=== PATIENT | female | born 1975 | race Caucasian/White ===

== ENCOUNTER 2022-04-05 15:30 | Outpatient (CLI) | payer OTHER, SELFPAY ==
--- NOTE | 2022-04-05 16:00 | MM_ITS ---
WS: [id number] BILATERAL 3D TOMOSYNTHESIS DIGITAL SCREENING MAMMOGRAPHY WITH CAD CLINICAL INFORMATION: SCREEN HISTORY: Screening mammogram. No current complaints. COMPARISON: 2013 TECHNIQUE: Bilateral CC and MLO views. FINDINGS: Scattered fibroglandular densities bilaterally. No suspicious focal mass, asymmetry, calcifications, or architectural distortion. No evidence of malignancy. MM/[place] [id number] IMPRESSION: BI-RADS: 1-Negative FOLLOW UP: 1 Year Follow-up Recommend return to annual screening mammography.
== END 2022-04-05 15:31 | disposition home or self-care (01) ==
LOC: RAD 15:30
PROVIDERS: PCP Nurse Practitioner Family; Visit Provider Nurse Practitioner Family
DX: Z12.31 Encounter for screening mammogram for malignant neoplasm of breast (principal)
CPT/HCPCS: 77063; 77067

== ENCOUNTER → 2022-04-13 11:00 | Outpatient (BNVA) | payer OTHER, SELFPAY | PROVIDERS: PCP Nurse Practitioner Family; Visit Provider Nurse Practitioner Women's Health | DX: N93.9 Abnormal uterine and vaginal bleeding, unspecified (principal); Z11.3 Encounter for screening for infections with a predominantly sexual mode of transmission; Z12.4 Encounter for screening for malignant neoplasm of cervix | CPT/HCPCS: 87491; 87591; 87624; 87661 ==

== ENCOUNTER 2022-04-17 16:18 | Outpatient (CLI) | payer OTHER, SELFPAY ==
[2022-04-17 22:59] LABS: HIV 1 & 2 Antibody Non-Reactive (Non-Reactiv); HIV 1 & 2 Antigen Non-Reactive (Non-Reactiv)
[2022-04-17 23:51] LABS: Thyroid Stimulating Hormone 1.58 uIU/mL (0.27-4.20)
[2022-04-17 23:54] LABS: Rapid Plasma Reagin Syphilis Nonreactive (Nonreactive)
[2022-04-17 23:58] LABS: Hepatitis B Surface Antigen Non-Reactive (Nonreactive); Hepatitis C Virus Antibody Non-Reactive (Nonreactive)
== END 2022-04-17 16:19 | disposition home or self-care (01) ==
LOC: LAB 16:22
PROVIDERS: PCP Nurse Practitioner Family; Visit Provider Nurse Practitioner Women's Health
DX: N93.9 Abnormal uterine and vaginal bleeding, unspecified (principal); Z11.3 Encounter for screening for infections with a predominantly sexual mode of transmission
CPT/HCPCS: 36415; 84443; 84702; 86592; 86803; 87340; 87806

== ENCOUNTER → 2022-04-27 15:26 | Outpatient (BNVA) | payer OTHER, SELFPAY | PROVIDERS: PCP Nurse Practitioner Family; Visit Provider Nurse Practitioner Women's Health | DX: N93.9 Abnormal uterine and vaginal bleeding, unspecified (principal) | CPT/HCPCS: 76830 ==

== ENCOUNTER → 2022-05-08 13:15 | Outpatient (BNVA) | payer OTHER, SELFPAY | PROVIDERS: PCP Nurse Practitioner Family; Visit Provider Nurse Practitioner Women's Health | DX: N93.9 Abnormal uterine and vaginal bleeding, unspecified (principal) | CPT/HCPCS: 81025; 85025; 88305 ==

== ENCOUNTER 2022-07-26 13:20 | Observation (INO) | payer OTHER, SELFPAY ==
[2022-07-25 08:19] VITALS: BMI 23.1
--- NOTE | 2022-07-25 08:31 | ANES.PREANE2 ---
Pre-Anesthetic Assessment Height/Weight: Height 1.63 m Weight 61.235 kg Operation Date: 07/26/22 11:50 Proposed Procedures p Laparoscopic assisted vaginal hysterectomy, bilateral salpingo-oophorectomy 88116,N93.9(Not Applicable) - Thom Thao MD Familial anesthetic complications: None Social Tobacco and No alcohol Exam alert, oriented x 3, clear to auscultation bilaterally and regular rate & rhythm Airway Mallampati: Class II Dentition: full Pulmonary None reported CV/HEM None reported None reported Hepatic None reported GI None reported Metabolic None reported Musc/skel None reported Neuropsych None reported Anesthetic Plan ASA status: 1 Anesthesia: General Risk of > 500 ml blood loss (7ml/kg in children): No Medications/Allergies Home Medications Medication Instructions Recorded Confirmed Last Taken Type hair skin and nails 3,000 mcg PO 1XD 06/30/20 07/25/22 07/25/22 History multivitamin (Daily Multi-Vitamin 1 tab PO DAILY 06/30/20 07/25/22 07/25/22 History tablet) calcium carb 300 mg-D3 800 1 tab PO DAILY 05/08/22 07/25/22 07/25/22 History unit-mag ox 25 mg-messenger copy 0.5 mg-neel-Zn tablet (Caltrate + D3 Plus Minerals) PFSH Anesthesia Medical History No pertinent past medical history neghx: htn,dm,thyroid,dvt/pe PCP: Anny Lino Seasonal allergies Tobacco use Surgical History H/O shoulder surgery Hx of section 1999 2004-- twins gestation Hx of colonoscopy (~2002) Family History Father Heart disease Denies family history of Colon cancer Ovarian cancer Diabetes Hypercholesteremia Breast cancer Hypertension Uterine cancer Thyroid disease Stroke Social History Smoking and tobacco status: current every day smoker (5- cigarettes) Female Reproductive History Date of last menstrual period: 07/18/22 Data Anesthesia Cardiac Studies: No Data to Display
[2022-07-26] VITALS (19 sets, daily range): BP systolic 84–124; BP diastolic 47–77; PULSE 45–76; RESP 16–23; TEMP 36.3–36.9; O2SAT 94–100
--- NOTE | 2022-07-26 10:18 | W.PM.OPSUD ---
Surgery/Procedure H&P Update DATE OF PROCEDURE: July 26, 2022 DATE H&P PERFORMED: 07/25/22 H&P UPDATE INFORMATION: I have reviewed H&P completed within last 30 days, I have examined patient prior to procedure and No changes to prior documentation PLANNED PROCEDURE: Operation Date: 07/26/22 11:50 Proposed Procedures p Laparoscopic assisted vaginal hysterectomy, bilateral salpingo-oophorectomy 16714,N93.9(Not Applicable) - Thom Thao MD
[2022-07-26 11:04] LABS: OR HCG Qualitative Urine Negative (Negative)
[2022-07-26 11:05] LABS: Add Urine Microscopic? YES; Bilirubin Urine Neg (Negative); Blood Urine Neg (Negative); Glucose Urine UA Norm (Normal); Ketones Urine Negative (Negative); Leukocyte Esterase Urine Negative (Negative); Nitrate Urine Negative (Negative); Protein Urine Neg (Negative); Urine Appearance Hazy (CLEAR); Urine Color Yellow (Yellow); Urobilinogen Urine 1 mg/dL (Negative); pH Urine 6 (5-7)
[2022-07-26] MEDS: sodium chloride 0.9% 1,000 ML 30 ML IV (11:12)
[2022-07-26 11:19] LABS: Basophils # 0.1 10^3/uL (0.0-0.1); Basophils % 1.1 %; Eosinophils # 0.3 10^3/uL (0.0-0.8); Eosinophils % 2.9 %; Hematocrit 45.4 % (37.0-47.0); Hemoglobin 15.1 g/dL (11.5-15.3); Lymphocytes # 2.7 10^3/uL (0.8-4.8); Lymphocytes % 31.7 %; Mean Corpuscular HGB Conc 33.3 g/dL (30.0-36.0); Mean Corpuscular Hemoglobin 29.3 pg (28.0-34.0); Mean Platelet Volume 11.3 fL (7.4-10.4); Monocytes # 0.6 10^3/uL (0.2-0.9); Monocytes % 6.8 %; Neutrophils # 4.91 10^3/uL (1.8-7.7); Neutrophils % 57.3 %; Nucleated Red Blood Cells % 0 %; Platelet Count 257 10^3/cmm (130-400); Red Blood Count 5.16 10^6/uL (4.1-5.3); Red Cell Distribution Width 12.5 % (12.1-15.1); White Blood Count 8.6 10^3/uL (4.0-10.0)
[2022-07-26] MEDS: midazolam 1 mg/mL INJ 2 mL 2 MG IVP (11:25)
[2022-07-26] MEDS: ceFOXitin 2,000 MG in sodium chloride 0.9% (plus) 50 ML 100 MG IV (11:33)
[2022-07-26 11:36] LABS: Alanine Aminotransferase 25 U/L (0-33); Albumin Level 4.7 g/dL (3.5-5.2); Alkaline Phosphatase 56 U/L (35-105); Aspartate Amino Transferase 27 U/L (0-32); Blood Urea Nitrogen 14 mg/dL (6-20); Calcium 9.1 mg/dL (8.5-10.5); Carbon Dioxide 27 mmol/L (22-29); Chloride 104 mmol/L (98-107); Globulin 2.5 g/dL (1.3-4.6); Glomerular Filtration Rate 106.7 mL/min (90-130); Glucose 89 mg/dL (65-115); Osmolality Calculated 292 mOsm/kg (285-295); Sodium 141 mmol/L (136-145); Total Bilirubin 0.4 mg/dL (0.15-1.2); Total Protein 7.2 g/dL (6.6-8.7)
[2022-07-26 11:47] LABS: RBC Urine 0-4 /hpf (0-2)
[2022-07-26 11:48] LABS: Add Urine Culture? No; Amorphous Sediment Urine 2+ /hpf; Bacteria Urine TRACE /hpf; Mucus Urine TRACE /hpf; Squamous Epithelial Cell Urine 0-4 /hpf (0-5)
[2022-07-26] MEDS: lidocaine-epi 2% 20 mL INJ 10 ML INJECTION (12:30)
--- NOTE | 2022-07-26 13:18 | PM.OP ---
Operative Report Date of procedure: July 26, 2022 Pre-op diagnosis: Preop Diagnosis Abnormal uterine bleeding Post-op diagnosis: Same as above Post-op findings: Normal-sized uterus Normal-sized ovaries and fallopian tubes. Mild endometriosis Procedure done: Laparoscopic assisted vaginal hysterectomy Specimens removed/disposition: Uterus Left and right fallopian tubes and ovaries Surgeon: Thom Thao MD Estimated blood loss (mL): 50 IV fluids (mL): 1,000 Urine output (mL): 50 Findings: Mild endometriosis Procedure: After discussing informed consent again, the patient was taken to the operating room where general anesthesia was administered. She was placed in the dorsal lithotomy position in low stirrups and prepped and draped in sterile fashion. Pre-Procedure Time-Out verifying the correct patient identity, correct procedure verified with consent, correct site and side, correct patient position, availability of correct implants and any special equipment or requirements was performed and acknowledge by the OR team. After the initial preparation, the procedure commenced at the vagina. With a Bookwalter vaginal retractor was place to visualize the cervix; the anterior and posterior lips of the cervix were separately grasped and clamped with halle tooth tenaculum. The cervix was then dilated to a #6 hegar dilator and a uterine manipulator within the uterine cavity for manipulation purposes being careful not to puncture the uterus. A Madden catheter was placed in the bladder. Attention was then turned to the abdomen. The umbilical region was infiltrated with 0.5% Marcaine with epinephrine. Following infiltration with Marcaine, an intraumbilical incision was made and the Verres needle was gently advanced taking care to feel for the typical sensation of penetrating the peritoneum. With CO2 infiltration, an opening pressure of 5 mmHg was noted, and following this, a pneumoperitoneum of 15 mmHg was created. A 5 mm Optiview trocar was then passed through the same incision under direct visualization. Trocar was removed and the laparoscope was then inserted through the trocar sleeve. Visualization of the peritoneal cavity was then obtained and a brief inspection did not reveal any signs of complications from entry. Under direct observation, a second incision was made 3 cm above the symphysis pubis, and a 5 mm trocar and sleeve were admitted into the abdomen under direct, laparoscopic visualization, 5mm flank ports were then placed laterally on left sides taking care to respect anatomical landmarks and vessels without complication. Once the placement of the ports was complete, the actual laparoscopic procedure began. The pelvic contents were visualized and noted an enlarged irregular uterus, deep cul-de-sac, normal bilateral fallopian tubes and ovaries normal, normal appendix, and both ureters were identified crossing the pelvic brim and pelvic sidewall. The left infundibulopelvic ligament was grasped and was coagulated/sealed and then transected with the Voyant device. The mesosalpinx was then sequentially, clamped, ligated, and cut using the Voyant device working alongside the length of the tube and towards the cornua. The left round ligament was grasped coagulated/sealed and transected using Voyant device. The left broad ligament was opened down to the level of the uterine artery and vein. The right infundibulopelvic ligament was grasped and the tuboovarian ligament was coagulated/sealed and then transected with the Voyant device. The mesosalpinx was then sequentially, clamped, ligated, and cut using the Voyant device working alongside the length of the tube and towards the cornua. The right round ligament was grasped coagulated/sealed and then transected with the Voyant device, and the right broad ligament was opened down to the level of the right uterine artery and vein. Peritoneum of the lower uterine segment was entered using Voyant, and the bladder adhesions were dissected off the lower uterine segment using blunt dissection. Careful inspection revealed complete hemostasis. Attention was then turned to the vaginal aspect of the surgery. The Madden catheter was clamped. A Bookwalter vaginal retractor was placed in the vagina and the uterine manipulator was removed. The tenaculum was repositioned anteriorly and posteriorly. A circumferential incision was made at the cervical vaginal reflection using cautery. This was undermined first anteriorly and a colpotomy made without difficulty. This was then repeated posteriorly and a similar colpotomy made. Beginning first on the patient's left, the uterosacral and cardinal ligament was clamped, sealed, divided with the Voyant device and suture ligated. Two bites were required to reach the previous dissection margin of the left side. The same process was then repeated on the patient's right hand side, at which point, the specimen was completely freed. Once the sutures had been placed and the pedicles secured, the uterus along with both tubes and ovaries were removed transvaginally without difficulty. All pedicles were inspected and hemostasis was confirmed. The patietn was given indigo carmine. The vaginal vault was then oversewn with a running locking Vicryl suture, securing first the posterior edge of the cuff followed by the anterior edge. Good hemostasis was obtained. Two [id number] sutures were then placed across the vaginal vault to close it. Once these had been tied off, all sutures were trimmed. The Madden catheter with yellow urine. All instruments were removed from the vagina at this time. Then attention was again turned back to the abdomen and inspected the abdomen to ensure complete hemostasis. Once the entire abdomen was inspected. The ports were then removed under direct visualization being sure to note hemostasis of the port sites on removal. The incisions were then closed with interrupted #-o vicryl sutures and Dermabond adhesive. The patient tolerated the procedure well, anesthesia reversed, and the patient was taken to the recovery room in stable condition. All sponges, instruments, and sharps were counted and correct x 3.
--- NOTE | 2022-07-26 13:44 | PC.NURSE ---
No bleeding noted from vagina or surgical sites
--- NOTE | 2022-07-26 14:42 | PC.NURSE ---
Addendum entered by Yane Zacarias RN 07/26/22 14:47: Dr Thao at bedside. Original Note: Returned from transporting patient to OB 11. Assisted [place] to take patient to [facility] @ patient request. Patient only passing gas. Assisted to bed. Dr. Luis
[2022-07-26] MEDS: dextrose 5%-lactated ringers 1,000 ML 125 ML IV (14:54)
[2022-07-26] MEDS: simethicone 80 mg Chew PO ×2 (14:55→17:00)
--- NOTE | 2022-07-26 16:00 | ANE.PACU2 ---
Inpatient post-anesthesia follow up: Airway intact: Yes Vital signs: Temperature 97.8 F Pulse Rate 53 Respiratory Rate 17 Blood Pressure 94/51 Pulse Oximetry 96 Oxygen Delivery Me thod Room Air Oxygen Flow Rate Fraction of Inspir ed Oxygen Hydration adequate: Yes Nausea and vomiting: No Pain level: 1 Mental status: Baseline
[2022-07-26] MEDS: HYDROcodone-acetaminophen 5-325 mg Tablet PO (16:52)
[2022-07-26] MEDS: ondansetron 2 mg/ML SDV 2 mL 4 MG IVP (16:53)
[2022-07-26] MEDS: docusate sodium 100 mg Capsule PO (18:07)
[2022-07-26] MEDS: ketorolac 30 mg/mL INJ IVP (18:08)
--- NOTE | 2022-07-26 18:34 | PC.NURSE ---
assisted pt to side of bed and then to chair. Pt did not tolerate well. Pt was in sever pain. Pt reports pain in right upper abdomen under her rib. Educated pt that this is most likely gas pain from having abdomen inflated with air during surgery and that getting out of bed will be the best thing for her. Pt has had simethicone twice and has had 2 [place]. Pt was very uncomfortable but agreed to sit in chair. Pt belched multiple times while sitting up.
[2022-07-27] MEDS: simethicone 80 mg Chew PO ×2 (01:25→08:08)
[2022-07-27] MEDS: ketorolac 30 mg/mL INJ IVP (01:25)
[2022-07-27 01:40] VITALS: BP 95/51; PULSE 56; RESP 18; TEMP 36.8; O2SAT 96
[2022-07-27 04:31] VITALS: BP 108/67; PULSE 67; RESP 17; TEMP 36.7; O2SAT 97
[2022-07-27 05:19] LABS: Hematocrit 35.4 % (37.0-47.0); Hemoglobin 11.7 g/dL (11.5-15.3); Mean Corpuscular HGB Conc 33.1 g/dL (30.0-36.0); Mean Corpuscular Hemoglobin 29.5 pg (28.0-34.0); Mean Corpuscular Volume 89.2 fl (81-99); Mean Platelet Volume 11.2 fL (7.4-10.4); Platelet Count 200 10^3/cmm (130-400); Red Blood Count 3.97 10^6/uL (4.1-5.3); Red Cell Distribution Width 12.5 % (12.1-15.1); White Blood Count 16.4 10^3/uL (4.0-10.0)
[2022-07-27] MEDS: docusate sodium 100 mg Capsule PO (08:08)
[2022-07-27] MEDS: ibuprofen 800 mg tablet PO (08:09)
[2022-07-27] MEDS: multivitamin therapeutic Tablet 1 TAB PO (08:09)
--- NOTE | 2022-07-27 08:51 | PM.OBGYDC ---
Discharge Providers FOREST MANAGEMENT PROFESSOR Date of Admission: 07/26/22 13:20 Date of Discharge: 07/27/22 Attending Provider at Admission: Thom Thao MD Attending Provider at Discharge: Thom Thao MD Primary FOREST MANAGEMENT PROFESSOR: Thom Thao MD Primary Care Provider: Nadege Lino APN Diagnoses at Discharge Discharge Diagnosis (1) Status post laparoscopic assisted vaginal hysterectomy (LAVH): Status: Acute Reason for Visit Reason for Visit: N93.9 Brief History: Mrs. Zarco is a 46-year-old female with abnormal uterine bleeding unresponsive to medical management Hospital Course Hospital Course Mrs. Ann 46-year-old female with a history of abnormal uterine bleeding unresponsive to medical management admitted for planned laparoscopic-assisted vaginal hysterectomy due to previous surgical history. The LAVH was performed without complications. Overnight observation was uneventful. Tolerating diet well. She is afebrile and hemodynamically stable postoperative day 1. Ambulating without difficulty. She was counseled regarding pelvic rest for 6 weeks (no sex, no tampons, no vaginal douches). Return to the emergency room if any fever, increased bleeding or pain. Physical Exam Narrative: GA: Alert and oriented ?3. HEENT: WNL. Heart: Regular rate and rhythm. Lungs: Clear to auscultation bilaterally. Abdomen: Bowel sounds present, nontender, minimal tenderness. NURSE TECHNICIAN: No bleeding. Extremities: No edema, no cyanosis, no calves pain. Urinary Catheter Management: Madden: Cath Placed During This Visit: yes, but has since been removed by the nurse Reason for Continuing Indwelling Catheter: Decision to DC Catheter Urinary Catheter Date of Insertion: 07/26/22 Urinary Catheter Time of Insertion: 12:00 Date Urinary Catheter Removed: 07/27/22 Time Urinary Catheter Discontinued: 05:15 History History History 3 Term 3 0 Miscarriages/Ectopic 0 Living Children 4 Discharge Data Studies Completed and Pending Pending at discharge Category Date Time Status Pathology: Surgical [PTH] Routine Pth 07/26/22 13:32 Received Laboratory Results WBC 16.4 10^3/uL (4.0-10.0) H 07/27/22 05:00 RBC 3.97 10^6/uL (4.1-5.3) L 07/27/22 05:00 Hgb 11.7 g/dL (11.5-15.3) 07/27/22 05:00 Hct 35.4 % (37.0-47.0) L 07/27/22 05:00 MCV 89.2 fl (81-99) 07/27/22 05:00 MCH 29.5 pg (28.0-34.0) 07/27/22 05:00 MCHC 33.1 g/dL (30.0-36.0) 07/27/22 05:00 RDW 12.5 % (12.1-15.1) 07/27/22 05:00 Plt Count 200 10^3/cmm (130-400) 07/27/22 05:00 MPV 11.2 fL (7.4-10.4) H 07/27/22 05:00 Neut % (Auto) 57.3 % 07/26/22 11:07 Lymph % (Auto) 31.7 % 07/26/22 11:07 [place] % (Auto) 6.8 % 07/26/22 11:07 Eos % (Auto) 2.9 % 07/26/22 11:07 Baso % (Auto) 1.1 % 07/26/22 11:07 Neut # (Auto) 4.91 10^3/uL (1.8-7.7) 07/26/22 11:07 Lymph # (Auto) 2.7 10^3/uL (0.8-4.8) 07/26/22 11:07 [place] # (Auto) 0.6 10^3/uL (0.2-0.9) 07/26/22 11:07 Eos # (Auto) 0.3 10^3/uL (0.0-0.8) 07/26/22 11:07 Baso # (Auto) 0.1 10^3/uL (0.0-0.1) 07/26/22 11:07 Nucleated RBC % (auto) 0 % 07/26/22 11:07 Nucleated RBCs # 0.0 /100WBC 07/26/22 11:07 Sodium 141 mmol/L (136-145) 07/26/22 11:07 Potassium 4.0 mmol/L (3.5-5.1) 07/26/22 11:07 Chloride 104 mmol/L (98-107) 07/26/22 11:07 Carbon Dioxide 27 mmol/L (22-29) 07/26/22 11:07 Anion Gap 14.0 (5-19) 07/26/22 11:07 BUN 14 mg/dL (6-20) 07/26/22 11:07 Creatinine 0.6 mg/dL (0.5-0.9) 07/26/22 11:07 GFR Calculation 106.7 mL/min (90-130) 07/26/22 11:07 Glucose 89 mg/dL (65-115) 07/26/22 11:07 Calculated Osmolality 292 mOsm/kg (285-295) 07/26/22 11:07 Calcium 9.1 mg/dL (8.5-10.5) 07/26/22 11:07 Total Bilirubin 0.4 mg/dL (0.15-1.2) 07/26/22 11:07 AST 27 U/L (0-32) 07/26/22 11:07 ALT 25 U/L (0-33) 07/26/22 11:07 Alkaline Phosphatase 56 U/L (35-105) 07/26/22 11:07 Total Protein 7.2 g/dL (6.6-8.7) 07/26/22 11:07 Albumin 4.7 g/dL (3.5-5.2) 07/26/22 11:07 Globulin 2.5 g/dL (1.3-4.6) 07/26/22 11:07 Urine Color Yellow (Yellow) 07/26/22 10:49 Urine Appearance Hazy (CLEAR) A 07/26/22 10:49 Urine pH 6 (5-7) 07/26/22 10:49 Ur Specific [place] 1.020 (1.005-1.030) 07/26/22 10:49 Urine Protein Neg (Negative) 07/26/22 10:49 Urine Glucose (UA) Norm (Normal) 07/26/22 10:49 Urine Ketones Negative (Negative) 07/26/22 10:49 Urine Blood Neg (Negative) 07/26/22 10:49 Urine Nitrate Negative (Negative) 07/26/22 10:49 Urine Bilirubin Neg (Negative) 07/26/22 10:49 Urine Urobilinogen 1 mg/dL (Negative) H 07/26/22 10:49 Ur Leukocyte Esterase Negative (Negative) 07/26/22 10:49 Urine RBC 0-4 /hpf (0-2) H 07/26/22 10:49 Urine WBC None /hpf (0-5) 07/26/22 10:49 Ur Squamous Epith Cells 0-4 /hpf (0-5) H 07/26/22 10:49 Amorphous Sediment 2+ /hpf 07/26/22 10:49 Urine Bacteria Trace /hpf (NONE) 07/26/22 10:49 Urine Mucus Trace /hpf 07/26/22 10:49 Urine HCG, Qual Negative (Negative) 07/26/22 10:40 Blood Type A Positive 07/26/22 11:07 Rho(D) Type Positive 07/26/22 11:07 Antibody Screen Negative 07/26/22 11:07 Vitals Last Vital Signs Temp 98.0 F 07/27/22 04:31 Pulse 67 07/27/22 04:31 Resp 17 07/27/22 04:31 BP 108/67 07/27/22 04:31 Pulse Ox 97 07/27/22 04:31 O2 Del Method 07/27/22 04:31 Discharge Plan Discharge Patient Disposition: Home Condition: Stable Prescriptions: New hydrocodone-acetaminophen 5-325 mg tablet 1 tab PO Q4H PRN (Reason: pain) Qty: 20 0RF acetaminophen 325 mg capsule 325 mg PO Q4H PRN (Reason: fever or pain) Qty: 60 0RF ibuprofen 800 mg tablet 800 mg PO TID PRN (Reason: pain) Qty: 60 0RF estradiol 0.5 mg tablet 0.5 mg PO DAILY 30 Days Qty: 30 0RF Continued multivitamin [Daily Multi-Vitamin] Tablet 1 tab PO DAILY hair skin and nails 3,000 mcg PO 1XD Caltrate + D3 Plus Minerals 300 mg-800 unit -25 mg-0.5 mg tablet 1 tab PO DAILY Discharge Orders: Discharge Order (Routine); Ordered 07/27/22 Ordered By: Thom Thao Referrals: Thom Thao MD [Physician] - 09/05/22 4:00 pm Lisa Posey APN, WHNP [Nurse Practitioner] - 08/09/22 4:00 pm Discharge Diet: Usual diet Discharge Activity: Limit activity as instructed Patient Instructions: Hydrocodone/Acetaminophen (By mouth), Ibuprofen (By mouth), Laxative, Stool Softeners (By mouth), Cigarette Smoking and Your Health (GEN), Salpingo-Oophorectomy (DC), Laparoscopic Hysterectomy (DC), OB Discharge Report, OB Laproscopic Surgery - [facility], Opioid Safety Activity Restrictions/Additional Instructions: 1. Please call [facility] on next working day to make your post-operative appointment in 2 weeks. 2. Please stay home until you come back to the clinic on first post-operative check up. 3. Please follow instructions on your medications CAREFULLY. 4. If you have abdominal incision, do not cover it unless dressing is necessary because of drainage. OK to shower, but avoid bath. Leave steri-strips until they fall off. If they are still on one week after surgery, you may remove them. 5. If you had vaginal surgery or vaginal repair, Dr. Thao may instruct you to take SITZ bath. 6. Yellow, blood tinged odorous vaginal discharge is usually normal after hysterectomy or vaginal surgeries. 7. No sexual intercourse, tampons, or douches until you are completely released from the post-operative care. 8. Avoid constipation by eating right and maybe using some Metamucil or Milk of Magnesia. 9. All prescription refills are given during the working hours. Please do no wait till it runs out. Call the clinic at [phone] before your medication runs out. The clinic will get in touch with your doctor to prescribe medications if necessary. 10. Please remain within 40 mile radius from our hospital because emergencies do happen now and then during the post-operative period. 11. If you have stairs at home, take one step at a time slowly and minimize the number of trips. It helps to stay in one floor for the next few days. No lifting except what you can lift by one hand until you are released from the post-operative care. 12. Driving is discouraged until you are well healed. It may be 3-4 weeks before you feel strong enough to drive. You should be able to turn and look through the rear window without pain and you should be able to push the brake pedal very hard without pain before you drive. No fast rules, but SAFETY should be your primary concern. DO NOT drive if you are on sedating medications such as narcotics. 13. Call the clinic (during working hours) to make urgent appointment or go to the Emergency room, if any of the following occurs: i. Vaginal bleeding becomes heavy, more than a period. ii. Incision becomes red and sore, or drains pus. iii. Your temperature is over 100.4 or you have chill. iv. IV site becomes red and swollen (a little ``knot?? is usually OK) v. Persistent nausea and vomiting vi. Persistent constipation or diarrhea vii. Rash or allergic reaction to medications. Discharge Attestations FOREST MANAGEMENT PROFESSOR Time Spent in Discharge Care*: greater than 30 min Coding Level of Care Code Acute Code for Chg Fwd Diagnoses Status post laparoscopic assisted vaginal hysterectomy (LAVH) Z90.710
[2022-07-27 09:45] VITALS: BP 109/76; PULSE 95; RESP 16; TEMP 36.9; O2SAT 97
== END 2022-07-27 09:45 | disposition home or self-care (01) ==
LOC: OBGYN 13:20
PROVIDERS: Admitting Provider Obstetrics & Gynecology; PCP Nurse Practitioner Family; Visit Provider Obstetrics & Gynecology
PROC: 0UT9FZZ Resection of Uterus, Via Natural or Artificial Opening With Percutaneous Endoscopic Assistance (ICD-10-PCS; CPT 58552; principal; 2022-07-26 11:30)
PROC: (CPT 58720; 2022-07-26 11:30)
DX: N93.9 Abnormal uterine and vaginal bleeding, unspecified (principal); F17.210 Nicotine dependence, cigarettes, uncomplicated
CPT/HCPCS: 58552; 36415; 80053; 81001; 81025; 84703; 85025; 85027; 86850; 86900; 88307; A4216; G0378; J0131; J0694; J1100; J1200; J1885; J2250; J2405; J2704; J2710; J3010; J3490; J7030; J7121; Q9968

== ENCOUNTER 2022-08-07 11:28 | Observation (INO) | payer OTHER, SELFPAY ==
[2022-08-07] VITALS (11 sets, daily range): BP systolic 102–111; BP diastolic 68–77; PULSE 70–93; RESP 14–21; TEMP 35.8–36.7; O2SAT 97–100; BMI 23.5
--- NOTE | 2022-08-07 11:50 | ECG_ITS ---
[facility] Test Date: 2022-08-07 Pat Name: Luci Ann Department: Room: Gender: Female Radiotelegrapher: : 1975 Requested By: Aron Lockett Order Number: [id number] Estelita MD: Antonio Watts M.D. Measurements Intervals [place] Rate: 80 P: 56 AL: 132 QRS: 58 QRSD: 80 T: 44 QT: 360 QTc: 416 Interpretive Statements SINUS RHYTHM No previous ECG available for comparison Electronically Signed On 08-07-2022 19:08:02 AUTOMATIC OPERATOR by Antonio Watts M.D. [id number]
[2022-08-07 11:57] LABS: Basophils # 0.1 10^3/uL (0.0-0.1); Basophils % 0.7 %; Eosinophils # 0.3 10^3/uL (0.0-0.8); Eosinophils % 1.7 %; Hematocrit 38.5 % (37.0-47.0); Hemoglobin 12.9 g/dL (11.5-15.3); Lymphocytes # 1.9 10^3/uL (0.8-4.8); Lymphocytes % 12.2 %; Mean Corpuscular HGB Conc 33.5 g/dL (30.0-36.0); Mean Corpuscular Hemoglobin 29.2 pg (28.0-34.0); Mean Corpuscular Volume 87.1 fl (81-99); Mean Platelet Volume 10.2 fL (7.4-10.4); Monocytes # 1.1 10^3/uL (0.2-0.9); Monocytes % 6.9 %; Neutrophils # 11.95 10^3/uL (1.8-7.7); Neutrophils % 78.1 %; Nucleated Red Blood Cells % 0 %; Platelet Count 496 10^3/cmm (130-400); Red Blood Count 4.42 10^6/uL (4.1-5.3); Red Cell Distribution Width 11.9 % (12.1-15.1); White Blood Count 15.3 10^3/uL (4.0-10.0)
--- NOTE | 2022-08-07 12:00 | CT_ITS ---
WS: [id number] CT ABDOMEN PELVIS TECHNIQUE: Contrast-enhanced CT of the abdomen and pelvis with coronal and sagittal reformatted image s. CLINICAL INFORMATION: abd pain COMPARISON: CT 2017 DLP: 399.[address] scans at [facility] use at least one of these dose optimization techniques: automated e xposure control; mA and/or kV adjustment per patient size (includes targeted exams where dose is matc hed to clinical indication); or iterative reconstruction. FINDINGS: Recent postoperative changes hysterectomy. Free fluid in the hysterectomy bed compatible with recent hysterectomy. Bladder is normal in appearance. Mild peripheral enhancement in the dorsal hysterectomy bed. Small amount of fluid in the pericolic gutters bilaterally. Small amount of perihepatic and per isplenic fluid. Mild hepatomegaly. Mild diffuse fatty infiltration liver. Normal portal vein and sple kathia vein. Normal GE junction. Lung bases are well aerated. Normal pancreatic parenchymal enhancement. Adrenal g lands are normal. Normal renal parenchymal enhancement. No hydronephrosis. Celiac and SMA are patent. Normal sigmoid colon. No evidence of high-grade small or large bowel obstruction. Scattered fluid in the small bowel and colon. A few air-fluid levels in the transverse colon. Mild small bowel thickeni ng LEFT upper quadrant. Normal appendix in the RIGHT lower quadrant. CT/CT abdomen pelvis w con* [id number] IMPRESSION: 1. Recent postoperative changes hysterectomy with free fluid in the hysterecto my bed. 2. Small amount of perihepatic and perisplenic fluid. Small amount of fluid in the pericolic gutters. 3. Bladder is normal in appearance. 4. A few air-fluid levels in the transverse colon with scattered fluid in smal l bowel likely due to postoperative adynamic ileus. 5. Mild thickening of small bowel loops in LEFT upper quadrant likely reactive or less likely small bowel enteritis. 6. Mild hepatomegaly with diffuse fatty infiltration liver. 7. No other acute findings.
--- NOTE | 2022-08-07 12:01 | W.ED.ABDPA2 ---
HPI - Abdominal Pain General: Chief Complaint: Abdominal Pain Stated Complaint: abd pain/diarrhea/post hysterectomy Time Seen by Provider: 08/07/22 11:42 Source: patient Mode of arrival: ambulatory History of Present Illness: 47-year-old female presents emergency room with complaint of abdominal pain particularly in the upper abdomen is been going on for approximately the last week several days to show she had a lap assisted vaginal hysterectomy.. Seem to do well for the first week and then about 4 days ago began having abdominal pain. She has worsening abdominal discomfort she had a low-grade fever at home no hematochezia melena hematemesis coffee-ground emesis has had some loose stools and diarrhea but no vomiting. MD elicited complaint: abdominal pain Pertinent past history: other (Recent lap assisted VATS hysterectomy) Onset (ago): day(s) (45) Pain Consistency: constant Location: Epigastric, LUQ and RUQ Severity: moderate Quality: sharp Exacerbating factors: nothing Associated Symptoms: Reports no associated symptoms, nausea and poor appetite; Denies anorexia, belching, bloating, change in bowel habits, change in stool character, chills, coffee ground emesis, constipation, GI cramping, diarrhea, dyspepsia, dysuria, excessive flatus, fever(s), heartburn, hematochezia, hematuria, hematemesis, fecal incontinence, loose stools, melena, syncope and vomiting Review of Systems Const: Denies: fever(s), chills, fatigue or malaise ENMT: Denies: throat pain, ear or mastoid pain, nasal discharge or nasal congestion Card: Denies: chest pain, palpitations, irregular heart rhythm, edema or syncope Resp: Denies: dyspnea, productive cough or non-productive cough GI: Reports: abdominal pain and nausea; Denies: vomiting, hematemesis, coffee ground emesis, heartburn, diarrhea, constipation, bloating, GI cramping, belching, excessive flatus, fecal incontinence, change in bowel habits, change in stool character, hematochezia or melena : Denies: dysuria, urinary frequency, urinary urgency or hematuria Skin/Breast: Denies: rash or pruritus PFSH ED PFSH: Medical History No pertinent past medical history neghx: htn,dm,thyroid,dvt/pe PCP: Anny Lino Seasonal allergies Tobacco use Surgical History H/O shoulder surgery Hx of section 1999 2004-- twins gestation Hx of colonoscopy (~2002) Family History Father Heart disease Denies family history of Colon cancer Ovarian cancer Diabetes Hypercholesteremia Breast cancer Hypertension Uterine cancer Thyroid disease Stroke Social History Smoking and tobacco status: current every day smoker (5- cigarettes) Physical Exam Const: COMMON NORMALS: no acute distress GENERAL APPEARANCE: cooperative and comfortable ORIENTATION/CONSCIOUSNESS: Yes awake, Yes oriented to person, Yes oriented to place and Yes oriented to time HENMT: COMMON NORMALS: normocephalic, atraumatic and hearing grossly normal bilaterally HEAD & SCALP: normocephalic and atraumatic Resp: COMMON NORMALS: normal respiratory effort, No retractions, No use of accessory muscles and clear to auscultation bilaterally AUSCULTATION: clear to auscultation bilaterally Cardio: COMMON NORMALS: regular rate, regular rhythm and No murmurs present (Cardio) RATE: regular rate RHYTHM: regular rhythm GI: AUSCULTATION: Yes normoactive bowel sounds PALPATION: Yes Tenderness to palpation present (GI) (Diffuse) and No Guarding due to palpation present (GI) Extremity: COMMON NORMALS: normal to inspection, capillary refill normal, no clubbing, cyanosis or edema, no calf tenderness and no pedal edema Neuro: SENSORIUM/ORIENTATION: Yes oriented to person, Yes oriented to place and Yes oriented to time Skin: COMMON NORMALS: no rashes or lesions noted GENERAL SKIN EXAM: no rashes or lesions noted Course Vital Signs: Vital signs: Vital Signs Temperature 98.2 F 08/09/22 11:54 Pulse Rate 80 08/09/22 11:54 Respiratory Rate 16 08/09/22 11:54 Blood Pressure 111/77 08/09/22 11:54 Pulse Oximetry 94 08/09/22 11:54 Oxygen Delivery Me thod 08/09/22 10:50 Oxygen Flow Rate 8 08/09/22 08:00 MDM - Abdominal Pain Medical Decision Making Significant amount of fluid noted in the pelvis. Concerned it may be blood repeat hemoglobin down one-point. Discussed Dr. Thao will admit to [facility] started on IV antibiotics. Dr. Thao has seen the patient in the emergency room. Medical Records I reviewed the patient's medical records. Lab Data I reviewed the patient's lab results. 08/07/22 11:50 08/07/22 11:50 Labs/Radiology: Radiology Impressions Gallbladder Ultrasound 08/08/22 07:00 IMPRESSION: 1. Small amount of ascites throughout the abdomen. Fluid is simple in appearance and does appear increased from the CT of 08/07/2022. If the patient is ovarian in this could explain this finding. Consider ureteral injury as a possible etiology. 2. Negative gallbladder. Abdomen/Pelvis CT 08/08/22 07:58 IMPRESSION: 1. Distal RIGHT ureteral injury with extravasation of excreted contrast into the pelvis. 2. Increasing amount of fluid throughout the abdomen and pelvis from the RIGHT ureteral injury. Notified Thom Thao MD at 08/08/2022 9:07 AM. Laboratory Results WBC 15.3 10^3/uL (4.0-10.0) H 08/07/22 11:50 RBC 4.42 10^6/uL (4.1-5.3) 08/07/22 11:50 Hgb 12.9 g/dL (11.5-15.3) 08/07/22 11:50 Hct 38.5 % (37.0-47.0) 08/07/22 11:50 MCV 87.1 fl (81-99) 08/07/22 11:50 MCH 29.2 pg (28.0-34.0) 08/07/22 11:50 MCHC 33.5 g/dL (30.0-36.0) 08/07/22 11:50 RDW 11.9 % (12.1-15.1) L 08/07/22 11:50 Plt Count 496 10^3/cmm (130-400) H 08/07/22 11:50 MPV 10.2 fL (7.4-10.4) 08/07/22 11:50 Neut % (Auto) 78.1 % 08/07/22 11:50 Lymph % (Auto) 12.2 % 08/07/22 11:50 [place] % (Auto) 6.9 % 08/07/22 11:50 Eos % (Auto) 1.7 % 08/07/22 11:50 Baso % (Auto) 0.7 % 08/07/22 11:50 Neut # (Auto) 11.95 10^3/uL (1.8-7.7) H 08/07/22 11:50 Lymph # (Auto) 1.9 10^3/uL (0.8-4.8) 08/07/22 11:50 [place] # (Auto) 1.1 10^3/uL (0.2-0.9) H 08/07/22 11:50 Eos # (Auto) 0.3 10^3/uL (0.0-0.8) 08/07/22 11:50 Baso # (Auto) 0.1 10^3/uL (0.0-0.1) 08/07/22 11:50 Nucleated RBC % (auto) 0 % 08/07/22 11:50 Nucleated RBCs # 0.0 /100WBC 08/07/22 11:50 Sodium 135 mmol/L (136-145) L 08/07/22 11:50 Potassium 4.5 mmol/L (3.5-5.1) 08/07/22 11:50 Chloride 97 mmol/L (98-107) L 08/07/22 11:50 Carbon Dioxide 24 mmol/L (22-29) 08/07/22 11:50 Anion Gap 18.5 (5-19) 08/07/22 11:50 BUN 14 mg/dL (6-20) 08/07/22 11:50 Creatinine 1.2 mg/dL (0.5-0.9) H 08/07/22 11:50 GFR Calculation 47.7 mL/min (90-130) L 08/07/22 11:50 Glucose 141 mg/dL (65-115) H 08/07/22 11:50 Calculated Osmolality 283 mOsm/kg (285-295) L 08/07/22 11:50 Lactic Acid 0.7 mmol/L (0.5-2.2) 08/07/22 12:29 Calcium 9.5 mg/dL (8.5-10.5) 08/07/22 11:50 Total Bilirubin 0.8 mg/dL (0.15-1.2) 08/07/22 11:50 AST 96 U/L (0-32) H 08/07/22 11:50 ALT 128 U/L (0-33) H 08/07/22 11:50 Alkaline Phosphatase 316 U/L (35-105) H 08/07/22 11:50 Total Protein 7.9 g/dL (6.6-8.7) 08/07/22 11:50 Albumin 3.6 g/dL (3.5-5.2) 08/07/22 11:50 Globulin 4.3 g/dL (1.3-4.6) 08/07/22 11:50 Urine Color Yellow (Yellow) 08/07/22 12:15 Urine Appearance Hazy (CLEAR) A 08/07/22 12:15 Urine pH 5 (5-7) 08/07/22 12:15 Ur Specific [place] 1.025 (1.005-1.030) 08/07/22 12:15 Urine Protein Trace (Negative) 08/07/22 12:15 Urine Glucose (UA) Norm (Normal) 08/07/22 12:15 Urine Ketones 1+ (Negative) H 08/07/22 12:15 Urine Blood 2+ (Negative) H 08/07/22 12:15 Urine Nitrate Negative (Negative) 08/07/22 12:15 Urine Bilirubin 1+ (Negative) H 08/07/22 12:15 Urine Urobilinogen 1 mg/dL (Negative) H 08/07/22 12:15 Ur Leukocyte Esterase Trace (Negative) H 08/07/22 12:15 Urine RBC 5-10 /hpf (0-2) H 08/07/22 12:15 Urine WBC 5-10 /hpf (0-5) H 08/07/22 12:15 Ur Squamous Epith Cells 0-4 /hpf (0-5) H 08/07/22 12:15 Calcium Oxalate Crystal 0-4 /hpf H 08/07/22 12:15 Amorphous Sediment Not Reportable 08/07/22 12:15 Urine Bacteria None /hpf (NONE) 08/07/22 12:15 Urine Mucus 3+ /hpf 08/07/22 12:15 Discharge Plan Discharge Patient Disposition: Admitted As Inpatient Admit Provider: Thom Thao Clinical Impression: Post-operative hemorrhage, Status post laparoscopic assisted vaginal hysterectomy (LAVH), Postoperative pain Condition: Stable Coding Level of Care Code ED [facility] for Chg Jessi
[2022-08-07] MEDS: ondansetron 2 mg/ML SDV 2 mL 4 MG IVP (12:10)
[2022-08-07] MEDS: morphine 4 mg/mL SDV 1 mL IVP ×2 (12:10→18:41)
[2022-08-07] MEDS: sodium chloride 0.9% 1,000 ML 999 ML IV ×2 (12:13→13:08)
[2022-08-07 12:17] LABS: Alanine Aminotransferase 128 U/L (0-33); Albumin Level 3.6 g/dL (3.5-5.2); Alkaline Phosphatase 316 U/L (35-105); Anion Gap 18.5 (5-19); Blood Urea Nitrogen 14 mg/dL (6-20); Calcium 9.5 mg/dL (8.5-10.5); Carbon Dioxide 24 mmol/L (22-29); Chloride 97 mmol/L (98-107); Globulin 4.3 g/dL (1.3-4.6); Glomerular Filtration Rate 47.7 mL/min (90-130); Glucose 141 mg/dL (65-115); Osmolality Calculated 283 mOsm/kg (285-295); Potassium 4.5 mmol/L (3.5-5.1); Sodium 135 mmol/L (136-145); Total Bilirubin 0.8 mg/dL (0.15-1.2); Total Protein 7.9 g/dL (6.6-8.7)
[2022-08-07 12:26] LABS: Aspartate Amino Transferase 96 U/L (0-32)
[2022-08-07 12:35] LABS: Add Urine Microscopic? YES; Bilirubin Urine 1+ (Negative); Blood Urine 2+ (Negative); Glucose Urine UA Norm (Normal); Ketones Urine 1+ (Negative); Leukocyte Esterase Urine Trace (Negative); Nitrate Urine Negative (Negative); Protein Urine Trace (Negative); Specific Gravity, Urine 1.025 (1.005-1.030); Urine Appearance Hazy (CLEAR); Urine Color Yellow (Yellow); Urobilinogen Urine 1 mg/dL (Negative); pH Urine 5 (5-7)
[2022-08-07 12:52] LABS: Lactic Sepsis W/Reflex 0.7 mmol/L (0.5-2.2)
[2022-08-07] MEDS: iohexol 350 mg/mL 500 mL Btl (per mL) IV (12:52)
[2022-08-07 12:54] LABS: Squamous Epithelial Cell Urine 0-4 /hpf (0-5)
[2022-08-07 12:55] LABS: Add Urine Culture? No; Calcium Oxalate Crystals Urine 0-4 /hpf; Mucus Urine 3+ /hpf
[2022-08-07 14:27] LABS: Hemoglobin 11.8 g/dL (11.5-15.3)
[2022-08-07 15:53] LABS: Alanine Aminotransferase 112 U/L (0-33); Albumin Level 3.3 g/dL (3.5-5.2); Alkaline Phosphatase 275 U/L (35-105); Anion Gap 14.7 (5-19); Aspartate Amino Transferase 59 U/L (0-32); Blood Urea Nitrogen 13 mg/dL (6-20); Calcium 8.9 mg/dL (8.5-10.5); Carbon Dioxide 24 mmol/L (22-29); Chloride 99 mmol/L (98-107); Globulin 3.9 g/dL (1.3-4.6); Glomerular Filtration Rate 52.8 mL/min (90-130); Glucose 120 mg/dL (65-115); Osmolality Calculated 279 mOsm/kg (285-295); Potassium 3.7 mmol/L (3.5-5.1); Sodium 134 mmol/L (136-145); Total Bilirubin 0.6 mg/dL (0.15-1.2); Total Protein 7.2 g/dL (6.6-8.7)
[2022-08-07] MEDS: loperamide 2 mg Capsule 4 MG PO (16:27)
[2022-08-07] MEDS: acetaminophen 500 mg Tablet 1000 MG PO ×2 (16:27→22:14)
[2022-08-07] MEDS: D5-NS 0.45% + KCL 20 mEq 20 MEQ/1,000 ML BAG 100 MEQ IV (19:42)
[2022-08-08] VITALS (19 sets, daily range): BP systolic 101–132; BP diastolic 58–88; PULSE 70–96; RESP 14–20; TEMP 36.2–37.2; O2SAT 94–100
[2022-08-08 05:04] LABS: Basophils # 0.1 10^3/uL (0.0-0.1); Basophils % 0.6 %; Eosinophils # 0.6 10^3/uL (0.0-0.8); Hematocrit 32.8 % (37.0-47.0); Hemoglobin 10.8 g/dL (11.5-15.3); Lymphocytes # 1.9 10^3/uL (0.8-4.8); Lymphocytes % 16.7 %; Mean Corpuscular HGB Conc 32.9 g/dL (30.0-36.0); Mean Corpuscular Volume 87.9 fl (81-99); Mean Platelet Volume 10.3 fL (7.4-10.4); Monocytes # 1.1 10^3/uL (0.2-0.9); Monocytes % 9.7 %; Neutrophils # 7.56 10^3/uL (1.8-7.7); Neutrophils % 67.6 %; Nucleated Red Blood Cells % 0 %; Platelet Count 425 10^3/cmm (130-400); Red Blood Count 3.73 10^6/uL (4.1-5.3); White Blood Count 11.2 10^3/uL (4.0-10.0)
[2022-08-08] MEDS: D5-NS 0.45% + KCL 20 mEq 20 MEQ/1,000 ML BAG 100 MEQ IV (05:57)
[2022-08-08] MEDS: acetaminophen 500 mg Tablet 1000 MG PO (06:05)
--- NOTE | 2022-08-08 07:00 | US_ITS ---
WS: [id number] RIGHT UPPER QUADRANT ULTRASOUND HISTORY: abdominal pain RUQ and LUQ COMPARISON: CT 08/07/2022 and prior gallbladder ultrasound 10/26/2016 Liver: 15.2 cm in length. Normal size liver. No bile duct dilatation or mass. Free simple fluid noted around the liver and extending into Morison's pouch. Portal Vein: Normal hepatopetal flow with monophasic waveform. Gallbladder: Normally distended gallbladder with no stones or wall thickening. CBD: 0.4 cm Pancreas: Partially obscured by bowel gas. Right kidney: 10.3 cm in length. Normal size and echogenicity. No hydronephrosis or mass. Aorta and IVC: Unremarkable abdominal aorta and IVC. Small amount of ascites throughout the abdomen. The amount appears increased since the CT of 3. This is simple fluid and free flowing. US/US gall bladder [id number] IMPRESSION: 1. Small amount of ascites throughout the abdomen. Fluid is simple in appearan ce and does appear increased from the CT of 08/07/2022. If the patient is ovaria n in this could explain this finding. Consider ureteral injury as a possible et iology. 2. Negative gallbladder.
--- NOTE | 2022-08-08 07:58 | CT_ITS ---
WS: [id number] CT ABDOMEN AND PELVIS WITH AND WITHOUT CONTRAST HISTORY: Abdominal pain. Evaluate for possible ureteral injury. TECHNIQUE: Imaging performed of the abdomen and pelvis with and without IV contrast. Noncontrast pha se imaging of the abdomen. Delayed IV contrast injection phase. Coronal and sagittal reformats are vasquez bmitted. All CT scans at [facility] use at least one of these dose optimization techniques: a utomated exposure control; mA and/or kV adjustment per patient size (includes targeted exams where do se is matched to clinical indication); or iterative reconstruction. IV CONTRAST: Omnipaque 350; 100 mL IV. Oral contrast: No DLP: 880.40 mGy.cm COMPARISON: Prior gallbladder ultrasound 08/08/[address] 08/07/2022. Mild dependent changes at the lung bases. Heart is normal size. Small hiatal hernia. Increasing amount of fluid throughout the abdomen and pelvis since the prior CT. This was also noted on the recent ultrasound performed today. On the noncontrast imaging there is still contrast although dilute within the urological system. There is increased density layering posteriorly in the pelvis. On the postcontrast imaging there is extravasation from the distal RIGHT ureter into the pelvis. Cons istent with a ureteral injury. There is no significant hydronephrosis although the RIGHT renal pelvis and RIGHT ureter are slightly more prominent than the LEFT. Postoperative hysterectomy changes. CT/CT abdomen pelvis w con* [id number] IMPRESSION: 1. Distal RIGHT ureteral injury with extravasation of excreted contrast into t he pelvis. 2. Increasing amount of fluid throughout the abdomen and pelvis from the RIGHT ureteral injury. Notified Thom Thao MD at 08/08/2022 9:07 AM.
[2022-08-08] MEDS: iohexol 350 mg/mL 500 mL Btl (per mL) IV (08:55)
[2022-08-08] MEDS: morphine 4 mg/mL SDV 1 mL IVP (09:53)
--- NOTE | 2022-08-08 12:29 | P.PN_ITS ---
Subjective Subjective: Mrs. Ann 47-year-old female is status post laparoscopic- assisted vaginal hysterectomy 2 weeks ago. Came to the emergency room complaining of right upper quadrant pain. Vitals/I&O/Wt Last Vital Signs Temp 98.5 F 08/08/22 09:00 Pulse 86 08/08/22 09:00 Resp 18 08/08/22 09:53 BP 112/76 08/08/22 09:00 Pulse Ox 99 08/08/22 09:53 O2 Del Method 08/08/22 09:00 08/07/22 08/08/22 08/08/22 22:59 06:59 14:59 Intake Total 1000 / 3025.75 Output Total 600 / 600 Balance -600 / 1425.75 1000 / 2425.75 Weight last 48 hrs Weight 62.142 kg Weight 62.142 kg Physical Exam Const: GENERAL APPEARANCE: cooperative, comfortable, well kempt and well developed; not in distress and not anxious NUTRITIONAL APPEARANCE: thin ORIENTATION/CONSCIOUSNESS: Yes awake, Yes oriented to person, Yes oriented to place and Yes oriented to time Neck/C-Spine: GENERAL: Yes normal visual inspection and No JVD Chest: CHEST: Yes Symmetrical chest wall rise and No localized rib tenderness with anteroposterior compression Resp: COMMON NORMALS: normal respiratory effort; negative for No retractions Cardio: COMMON NORMALS: regular rate RATE: regular rate GI: COMMON NORMALS: Soft to palpation INSPECTION: Yes normal to inspection, Yes scar (Healing well) and No Fluid wave present AUSCULTATION: Yes normoactive bowel sounds PALPATION: Yes Soft to palpation and Yes Tenderness to palpation present (GI) Details: RUQ PERCUSSION: no fluid wave and no tympanic to percussion : SPECULUM EXAM - VAGINA: No vaginal bleeding SPECULUM EXAM - CERVIX: Yes Cervix absent BIMANUAL EXAM - VAGINA & UTERUS: Yes uterus absent OB/EXTERNAL & SPECULUM: No vaginal bleeding Neuro: SENSORIUM/ORIENTATION: Yes oriented to person, Yes oriented to place and Yes oriented to time Psych: APPEARANCE: Yes well kempt Data 08/08/22 05:00 08/07/22 15:24 A&P Assessment and plan (1) Right ureteral injury: Mrs. Ann 47-year-old female is status post laparoscopic-assisted vaginal hysterectomy 2 weeks ago. Came to the emergency room complaining of right upper quadrant pain. Upon evaluation a CT scan was performed and it was subjective possible hematoma. Due to her patient complaining of right upper quadrant pain gallbladder ultrasound was performed and was within normal limit. A CT scan and with delayed contrast was performed, which was positive for contrast leakage at the distal end of the right ureter. The patient was counseled regarding this finding, as a possible complication from dissecting the scarred bladder from the uterus. Dr. Gongora urology was consulted and he will be coming in to evaluate the patient and offer the options for treatment. recommende a diagnostic laparosocpy if stent is successful to clear fluid/hematoma from pelvis. (2) Postoperative pain: Attestations Medical Necessity Statement*: in my proffesional opinion per admitting diagnosis Coding Level of Care Code Acute Code for [facility] Fwd Diagnoses Right ureteral injury S37.10XA Postoperative pain G89.18
--- NOTE | 2022-08-08 13:01 | SC_ITS ---
WS: [id number] Exam: C-arm FL for Urology Date/Time of Exam: 08/08/2022 1:37 PM Reason For Exam: Retrograde possible stent for distal ureteral injury Limited C-arm images of the central and right pelvis in the AP projection are submitted for evaluatio n. The images depict opacification of the distal right ureter and possible rupture of the ureter with ex travasation of radiographic contrast in the pelvis. There is also some pre-existing contrast in the u rinary bladder. No other significant finding on this limited image.
--- NOTE | 2022-08-08 13:07 | PM.CONSULT ---
Providers/Reason For Consult Consulting Physician/Specialty*: Urology/Gongora Reason for Consult*: Right distal ureteral injury with urinary extravasation Requesting Physician: Dr. Thao Attending Physician: Thom Thao MD Primary Care Provider: Nadege Lino APN History of Present Illness History of Present Illness Luci Ann is a 47 year old female who about 2 weeks ago underwent a hysterectomy with no obvious untoward events intraoperatively. Postoperatively she complained of increasing abdominal pain and bloating of unclear etiology. No fever or chills. Then developed diarrhea. Has had persistent diarrhea since that time. She has tenderness in her right upper quadrant right CVA area. CT scan yesterday showed fluid free in the pelvis of unclear etiology. There was no evidence of ureteral dilation on either side. Repeat CT scan today with contrast showed what appeared to be extravasation of contrast from the right distal ureter with increasing fluid extravasation. Impression is right distal ureteral injury with significant urinary extravasation. I have recommended cystoscopy retrograde and attempt at ureteral stent placement if the wire easily goes. If there is severe extravasation with no continuity of contrast in a retrograde fashion up the ureter that may be abandoned. Have reviewed percutaneous nephrostomy tube then being the next step which would require interventional radiology not available to [facility]. There is a possibility that antegrade stent placement would be successful whereas a retrograde attempt would not be. If not then percutaneous nephrostomy tube as a temporizing measure until definitive treatment/ureteral reconstruction reimplantation etc. It is my general impression based on the degree of extravasation that obtaining continuity from distal to proximal with wire or stent is going to be unlikely. I expressed this to the patient but certainly am hopeful that we can succeed Review of Systems Const: Denies: fever(s) or chills Eyes: Denies: change in vision ENMT: Denies: hoarseness Card: Denies: chest pain or palpitations GI: Reports: abdominal pain, nausea and diarrhea Musc: Reports: back pain; Denies: joint warmth Skin/Breast: Reports: rash Neuro: Denies: confusion, behavioral changes or Slurred speech present Endo: Denies: flushing Gómez/Lymph: Denies: easy bruising or easy bleeding All/Imm: Denies: urticaria or acute wheezing Medications/Allergies Home Medications Medication Instructions Recorded Confirmed Last Taken Type acetaminophen 325 mg capsule 325 mg PO Q4H PRN fever or pain 07/27/22 08/07/22 08/06/22 Rx #60 caps estradiol 0.5 mg tablet 0.5 mg PO DAILY Surgical menopause 07/27/22 08/07/22 08/04/22 Rx 30 days #30 tabs ibuprofen 800 mg tablet 800 mg PO TID PRN pain #60 tabs 07/27/22 08/07/22 08/07/22 Rx Allergies Allergy/AdvReac Type Severity Reaction Status Date / Time codeine Allergy ADR-Vomitin Verified 07/26/22 10:55 g oxycodone Allergy ADR-Halluci Verified 07/26/22 10:58 nating Current Medications Generic Name Dose Route Start Last Admin Trade Name Freq PRN Reason Stop Dose Admin Acetaminophen 1,000 mg 08/07/22 16:08 08/08/22 06:05 Acetaminophen 500 Mg Tablet PO 1,000 mg Q6H PRN Administration MILD PAIN OR INCREASE TEMP Potassium Chloride/Dextrose/Sod Cl 20 meq in 1,000 mls @ 100 mls/hr 08/07/22 14:22 08/08/22 05:57 D5-Ns 0.45% + Kcl 20 Meq IV 100 mls/hr .Q10H DEON Administration Loperamide HCl 4 mg 08/07/22 16:15 08/07/22 16:27 Loperamide 2 Mg Capsule PO 4 mg QID PRN Administration diarrhea Morphine Sulfate 4 mg 08/07/22 14:22 08/08/22 09:53 Morphine 4 Mg/Ml Sdv 1 Ml IVP 4 mg Q4H PRN Administration SEVERE PAIN PFSH Acute PFSH: Medical History No pertinent past medical history neghx: htn,dm,thyroid,dvt/pe PCP: Anny Lino Seasonal allergies Tobacco use Surgical History H/O shoulder surgery Hx of section 1999 2004-- twins gestation Hx of colonoscopy (~2002) Family History Father Heart disease Denies family history of Colon cancer Ovarian cancer Diabetes Hypercholesteremia Breast cancer Hypertension Uterine cancer Thyroid disease Stroke Social History Smoking and tobacco status: current every day smoker (5- cigarettes) Vitals/I&O/Wt Last Vital Signs Temp 98.5 F 08/08/22 09:00 Pulse 86 08/08/22 09:00 Resp 18 08/08/22 09:53 BP 112/76 08/08/22 09:00 Pulse Ox 99 08/08/22 09:53 O2 Del Method 08/08/22 09:00 08/07/22 08/08/22 08/08/22 22:59 06:59 14:59 Intake Total 1000 / 3025.75 Output Total 600 / 600 Balance -600 / 1425.75 1000 / 2425.75 Weight last 48 hrs Weight 137 lb Weight 137 lb Physical Exam Const: COMMON NORMALS: no acute distress, alert and well nourished GENERAL APPEARANCE: well kempt and well developed ORIENTATION/CONSCIOUSNESS: not confused HENMT: COMMON NORMALS: normocephalic HEAD & SCALP: normal to inspection and normocephalic Eye: COMMON NORMALS: conjunctivae normal and no scleral icterus CONJUNCTIVA: Yes conjunctivae normal Neck/C-Spine: GENERAL: Yes normal visual inspection Resp: COMMON NORMALS: normal respiratory effort EFFORT & INSPECTION: Yes able to speak in complete sentences, No labored and No Actively coughing GI: OTHER: No surgical abdomen. She does have some tenderness in her right upper quadrant right CVA area and to lesser degree right lower quadrant. Bladder is not distended. No rebound. : OTHER: Bladder is nondistended Neuro: COMMON NORMALS: no focal motor deficits SENSORIUM/ORIENTATION: Yes alert Psych: COMMON NORMALS: mental status grossly normal APPEARANCE: Yes grossly normal and Yes well kempt ATTITUDE: Yes calm and Yes engaged Skin: COMMON NORMALS: no rashes or lesions noted and no jaundice GENERAL SKIN EXAM: no rashes or lesions noted Data 08/08/22 05:00 08/07/22 15:24 A&P Assessment and plan (1) Right ureteral injury: (2) Urinary extravasation: Plan Recommend cystoscopy, RIGHT retrograde, ureteral stent when time is available Coding Level of Care Code Acute Code for Chg Fwd Diagnoses Right ureteral injury S37.10XA Urinary extravasation R39.0
--- NOTE | 2022-08-08 13:52 | P.ANESUD_ITS ---
Pre-Anesthetic Update Pre-Anesthetic Assessment: Date of Surgery/Procedure: 08/08/22 Preop Ila gnosis: Abnormal uterine bleeding Proposed Procedure: Operation Date: 08/08/22 13:35 Proposed Procedures p Cystoscopy(Not Applicable) - Devon Gongora MD s Ureteral Stent Placement(Not Applicable) - Devon Gongora MD s Retrograde Pyelogram(Not Applicable) - Devon Gongora MD Any changes to Pre-Anesthetic Assessment?: No Last Intake: Intake Last Liquid Date 08/07/22 Last Liquid Time 23:59 Last Solid Date 08/07/22 Last Solid Time 16:00 Labs Last 48hrs: Short CBC 08/07/22 08/07/22 08/08/22 Range/Units 11:50 14:04 05:00 WBC 15.3 H 11.2 H (4.0-10.0) 10^3/ uL Hgb 12.9 11.8 10.8 L (11.5-15.3) g/dL Hct 38.5 32.8 L (37.0-47.0) % MCV 87.1 87.9 (81-99) fl Plt Count 496 H 425 H (130-400) 10^3/c mm Neut % (Auto) 78.1 67.6 % Neut # (Auto) 11.95 H 7.56 (1.8-7.7) 10^3/u L BMP 08/07/22 08/07/22 11:50 15:24 Sodium 135 L 134 L Potassium 4.5 3.7 Chloride 97 L 99 Carbon Dioxide 24 24 BUN 14 13 Creatinine 1.2 H 1.1 H Glucose 141 H 120 H Calcium 9.5 8.9 Liver Function 08/07/22 08/07/22 Range/Units 11:50 15:24 Total Bilirubin 0.8 0.6 (0.15-1.2) mg/dL AST 96 H 59 H (0-32) U/L ALT 128 H 112 H (0-33) U/L Alkaline Phosphata se 316 H 275 H (35-105) U/L Albumin 3.6 3.3 L (3.5-5.2) g/dL Urine 08/07/22 Range/Units 12:15 Urine Color Yellow (Yellow) Urine Appearance Hazy A (CLEAR) Urine pH 5 (5-7) Ur Specific Gravit y 1.025 (1.005-1.030) Urine Protein Trace (Negative) Urine Glucose (UA) Norm (Normal) Urine Ketones 1+ H (Negative) Urine Nitrate Negative (Negative) Urine Bilirubin 1+ H (Negative) Ur Leukocyte Jessica ase Trace H (Negative) Urine RBC 5-10 H (0-2) /hpf Urine WBC 5-10 H (0-5) /hpf Vitals: Temperature 97.2 F L 08/08/22 13:44 Temperature Source Temporal Artery S can 08/08/22 13:44 Pulse Rate 87 08/08/22 13:44 Respiratory Rate 18 08/08/22 13:44 Respiratory Effort Non-Labored 08/08/22 09:53 Respiratory Depth Normal 08/08/22 09:53 Respiratory Patter n 08/08/22 09:53 Blood Pressure 112/58 08/08/22 13:44 Blood Pressure Linnea n 76 08/08/22 13:44 Blood Pressure Pos ition Semi Fowlers 08/08/22 05:02 Pulse Oximetry 97 08/08/22 13:44 Oxygen Delivery Me thod 08/08/22 13:44 Sepsis Recent Feve r Within 48 Hours No 08/07/22 11:35 Sepsis New/Unexpla ined Change in Men miguelina Status No 08/07/22 11:33 Exam: Pre-Anes Outpt Exam: alert, oriented x 3, clear to auscultation bilaterally and regular rate & rhythm Cardiac Studies: No Data to Display
[2022-08-08] MEDS: levofloxacin-dextrose 5 % 500 MG/100 ML PREMIX 100 MG IV (14:28)
[2022-08-08] MEDS: iohexol 350 mg/mL 100 mL Btl 10 ML XX (15:20)
--- NOTE | 2022-08-08 15:32 | P.OP_ITS ---
Operative Report Date of procedure: August 08, 2022 Pre-op diagnosis: Right distal ureteral injury with extravasation Post-op diagnosis: Right distal ureteral injury with extravasation Procedure done: 1. Cystoscopy, RIGHT retrograde ureteropyelogram Specimens removed/disposition: None Pathology: None Surgeon: Fransisca Estimated blood loss: Minimal Urine output: Not measured Complications: None Findings: Anesthesia: General Condition: Stable Disposition: PACU Intraoperative findings: * The area of ureteral injury was approximately 5 inches from the ureteral orifice. There was extravasation. There is no continuity of contrast flowing up the ureter proximal to the injured area * A single simple nonpressured pass of the guidewire stopped abruptly where the contrast stopped. Brief History: Luci is a very pleasant 47-year-old white female who presented with evidence of right distal ureteral trauma with extravasation of urine about [address] scan showed large amount of extravasated fluid in the abdomen. She was having a lot of associated discomfort building over the last couple weeks. I recommended a cystoscopy and right retrograde ureteropyelogram to confirm the findings and to see if it would be possible to pass a wire and stent to facilitate healing. Procedure: After urgent evaluation examination and obtaining of informed consent she was taken to the operating suite and 08/08/2022 where general anesthesia was administered without difficulty after appropriate timeout was performed, SCDs confirmed to be functioning, preoperative antibiotics administered, beta-roberto protocol confirmed. Prepped and draped in usual sterile fashion in dorsolithotomy position. A 21 Nepali cystoscope with 30 degree lens was introduced into urethra meatus and advanced into the bladder. The bladder was systematically examined with both 30 and 70 degree lenses with no gross abnormality. Orifices were easily identified. An 8 Nepali cone-tip catheter was intubated into the right ureteral orifice for right retrograde ureteropyelogram that demonstrated: Normal course and caliber of the distal ureter for about 5 inches at which point there was an abrupt cessation of contrast flow. There was no immediate extravasation. A flexible tip guidewire was gently passed up the right ureter and observed carefully under fluoroscopy. It reached the same point with no further progress and the wire was removed. A second retrograde ureteropyelogram was performed and at first there was no evidence of extravasation within a slight increase in pressure there was. There was no evidence of contrast flowing up the or proximal aspect of the ureter. This point the procedure was completed. The bladder was drained with a Madden catheter. Urology procedure was completed. Patient was then passed over to Dr. Thao for his portion of the procedure. See that under separate copy. She tolerated procedure well without complications PLANS: 1. We will start making calls to see if we can get her transferred to an institution with interventional radiology for right percutaneous nephrostomy tube placement for drainage possibly for consideration for attempt at antegrade stent placement. It is my impression of the antegrade stent placement would be very difficult and unlikely. 2. She would likely require reconstructive surgery with ureteral implantation etc.
--- NOTE | 2022-08-08 16:22 | P.OP_ITS ---
Operative Report Date of procedure: August 08, 2022 Pre-op diagnosis: Preop Diagnosis Right distal ureteral injury with extravasation Post-op diagnosis: Same as above Post-op findings: Peritoneal fluid Procedure done: Diagnostic laparoscopy Surgeon: Thom Thao MD Estimated blood loss (mL): 20 IV fluids (mL): 1,000 Urine output (mL): 100 Urine output: blue/green Complications: none Findings: extravasated fluids/urine Procedure: After informed consent, the patient was taken to the operating room where general anesthesia was administered. The patient was examined under anesthesia and found to have a normal uterus with normal adnexa. She was placed in the dorsal lithotomy position and prepped and draped in sterile fashion. Pre- Procedure Time-Out verifying the correct patient identity, correct procedure verified with consent, correct site and side, correct patient position, availability of correct implants and any special equipment or requirements was performed and acknowledge by the OR team. A weighted speculum was placed in the vagina, and the anterior lip of cervix was grasped with the single toothed tenaculum. A uterine manipulator was advanced into the endocervical. Tenaculum was removed after uterine manipulator was secured. The speculum was removed from the vagina. An intraumbilical incision was made with a scalpel. While tenting up on the abdomen, a Verres needle with sleeve was admitted into the intra-abdominal cavity. A saline drop test was performed and noted to be within normal limits. Pneumoperitoneum was attained with 4 liters of carbon dioxide. The Verres needle was removed. A 5 mm trocar and sleeve were admitted into the abdomen and laparoscopic confirmation of location was achieved, A second incision was made 3 cm above the symphysis pubis, and a 5 mm trocar and sleeve were admitted into the abdomen under direct, laparoscopic visualization without complication. A survey revealed normal abdominal anatomy but pelvic survey shows fluid. A 5 mm blunt probe was advanced through the second trocar sleeve, and light manipulation bowel to assess the cul de sac and right side pelvic wall was performed. Methin blue was give IV. 35 later still no blue dye was noted in the pelvis, but it was noted in the arias bag. After sapiration fluid the pelvis was copiously irrigated. A total of a 1000 ml was aspirated. Fibrinous deposit noted in pelvis area at the cuff and ovarian beds. No signs of infection noted. Carbon dioxide was allowed to escape from the abdomen. The instruments were removed, and skin port incisions were closed with 3-O Vicryl and cover with a dermabond. The instruments were removed from the vagina, and excellent hemostasis was noted. The patient tolerated the procedure well, and sponge, lap and needle count were correct times two. The patient taken to the recovery room in good condition.
--- NOTE | 2022-08-08 16:34 | SUR.OPER ---
1530 16 andorran arias inserted by BRIANA Carson under supervision of RODRI Gustafson.
[2022-08-08] MEDS: dextrose 5%-lactated ringers 1,000 ML 125 ML IV (17:35)
[2022-08-08] MEDS: HYDROcodone-acetaminophen 5-325 mg Tablet PO (21:02)
[2022-08-09 00:21] VITALS: BP 111/76; PULSE 80; RESP 16; O2SAT 96
[2022-08-09] MEDS: dextrose 5%-lactated ringers 1,000 ML 125 ML IV ×2 (01:36→10:05)
[2022-08-09 04:52] VITALS: BP 98/61; PULSE 80; RESP 17; TEMP 36.8; O2SAT 95
[2022-08-09 05:07] LABS: Basophils % 0.2 %; Hematocrit 32.9 % (37.0-47.0); Hemoglobin 11.1 g/dL (11.5-15.3); Lymphocytes # 1.2 10^3/uL (0.8-4.8); Lymphocytes % 7.6 %; Mean Corpuscular HGB Conc 33.7 g/dL (30.0-36.0); Mean Corpuscular Hemoglobin 29.1 pg (28.0-34.0); Mean Corpuscular Volume 86.1 fl (81-99); Mean Platelet Volume 10.5 fL (7.4-10.4); Monocytes # 0.6 10^3/uL (0.2-0.9); Monocytes % 3.5 %; Neutrophils # 13.83 10^3/uL (1.8-7.7); Neutrophils % 88.4 %; Nucleated Red Blood Cells % 0 %; Platelet Count 510 10^3/cmm (130-400); Red Blood Count 3.82 10^6/uL (4.1-5.3); Red Cell Distribution Width 12.1 % (12.1-15.1); White Blood Count 15.7 10^3/uL (4.0-10.0)
[2022-08-09 05:52] LABS: Alanine Aminotransferase 52 U/L (0-33); Albumin Level 2.9 g/dL (3.5-5.2); Alkaline Phosphatase 192 U/L (35-105); Anion Gap 16.2 (5-19); Aspartate Amino Transferase 16 U/L (0-32); Blood Urea Nitrogen 9 mg/dL (6-20); Calcium 8.6 mg/dL (8.5-10.5); Carbon Dioxide 21 mmol/L (22-29); Chloride 103 mmol/L (98-107); Glomerular Filtration Rate 58.9 mL/min (90-130); Glucose 165 mg/dL (65-115); Osmolality Calculated 284 mOsm/kg (285-295); Potassium 4.2 mmol/L (3.5-5.1); Sodium 136 mmol/L (136-145); Total Bilirubin 0.2 mg/dL (0.15-1.2); Total Protein 5.9 g/dL (6.6-8.7)
[2022-08-09 10:50] VITALS: BP 111/77; PULSE 80; RESP 16; TEMP 36.8; O2SAT 94
--- NOTE | 2022-08-09 11:03 | P.DS_ITS ---
Discharge Providers Date of Admission: 08/07/22 13:38 Date of Discharge: August 09, 2022 Attending Provider at Admission: Thom Thao MD Attending Provider at Discharge: Thom Thao MD Consults: UA/urology Primary Care Provider: Nadege Lino APN Diagnoses at Discharge Discharge Diagnosis (1) Right ureteral injury: Status: Acute (2) Urinary extravasation: Status: Acute Reason for Visit Reason for Visit: abd pain/diarrhea/post hysterectomy Hospital Course Hospital Course She was admitted and underwent a CT scan that demonstrated increased extravasation of urine in the abdomen. Was having a lot of abdominal pain and right upper quadrant pain. Careful review of the CT scan showed the area of the injury to the ureter to be likely about 5 inches above the trigone. It was decided to see if the stent could be passed. She was taken to the operating room where cystoscopy and right retrograde revealed normal distal ureter for about 5 inches at which point there was extravasation of contrast. Please see operative report. There is no retrograde filling of the more proximal portion of the ureter. The procedure was abandoned. She underwent at that point laparoscopy and drainage of large amount of fluid in the abdomen. This was performed by Dr. Thao. Postoperatively she did very well. Her pain was completely resolved after drainage of the fluid. On postop day #1 arrangements were made with [facility] to perform by interventional radiology a right percutaneous nephrostomy tube placement. She will be traveling by personal vehicle. She is doing very well postoperatively and it is felt that that is not an unreasonable transportation methodology. The plan is to direct admit her back to [facility] for observation overnight due to the lack of beds available at [place]. I reviewed all of this in detail with the patient and her family and they felt very comfortable with this plan. It is anticipated that she will simply be watched overnight following percutaneous nephrostomy tube placement. Physical Exam Narrative: She looks much better today. Const: COMMON NORMALS: no acute distress, alert and well nourished GENERAL APPEARANCE: well kempt and well developed ORIENTATION/CONSCIOUSNESS: not confused HENMT: COMMON NORMALS: normocephalic HEAD & SCALP: normal to inspection and normocephalic Neck/C-Spine: GENERAL: Yes normal visual inspection Resp: COMMON NORMALS: normal respiratory effort EFFORT & INSPECTION: Yes able to speak in complete sentences, No labored and No Actively coughing : OTHER: Bladder is nondistended Neuro: COMMON NORMALS: no focal motor deficits SENSORIUM/ORIENTATION: Yes alert Psych: COMMON NORMALS: mental status grossly normal APPEARANCE: Yes grossly normal and Yes well kempt ATTITUDE: Yes calm and Yes engaged Skin: COMMON NORMALS: no rashes or lesions noted and no jaundice GENERAL SKIN EXAM: no rashes or lesions noted Urinary Catheter Management: Madden: Cath Placed During This Visit: yes Urinary Catheter Date of Insertion: 08/08/22 Urinary Catheter Time of Insertion: 15:30 Discharge Data Studies Completed and Pending Completed Studies During Hospitalization Category Date Time Status CT abdomen pelvis w con* [id number] Stat Cat Scan 08/07/22 12:[address] abdomen pelvis w con* [id number] Urgent Cat Scan 08/08/22 07:58 Completed US gall bladder [id number] Routine Ultrasound 08/08/22 07:00 Completed Radiology Impressions Gallbladder Ultrasound 08/08/22 07:00 IMPRESSION: 1. Small amount of ascites throughout the abdomen. Fluid is simple in appearance and does appear increased from the CT of 08/07/2022. If the patient is ovarian in this could explain this finding. Consider ureteral injury as a possible etiology. 2. Negative gallbladder. Abdomen/Pelvis CT 08/08/22 07:58 IMPRESSION: 1. Distal RIGHT ureteral injury with extravasation of excreted contrast into the pelvis. 2. Increasing amount of fluid throughout the abdomen and pelvis from the RIGHT ureteral injury. Notified Thom Thao MD at 08/08/2022 9:07 AM. Laboratory Results WBC 15.7 10^3/uL (4.0-10.0) H 08/09/22 04:55 RBC 3.82 10^6/uL (4.1-5.3) L 08/09/22 04:55 Hgb 11.1 g/dL (11.5-15.3) L 08/09/22 04:55 Hct 32.9 % (37.0-47.0) L 08/09/22 04:55 MCV 86.1 fl (81-99) 08/09/22 04:55 MCH 29.1 pg (28.0-34.0) 08/09/22 04:55 MCHC 33.7 g/dL (30.0-36.0) 08/09/22 04:55 RDW 12.1 % (12.1-15.1) 08/09/22 04:55 Plt Count 510 10^3/cmm (130-400) H 08/09/22 04:55 MPV 10.5 fL (7.4-10.4) H 08/09/22 04:55 Neut % (Auto) 88.4 % 08/09/22 04:55 Lymph % (Auto) 7.6 % 08/09/22 04:55 Gentry % (Auto) 3.5 % 08/09/22 04:55 Eos % (Auto) 0.0 % 08/09/22 04:55 Baso % (Auto) 0.2 % 08/09/22 04:55 Neut # (Auto) 13.83 10^3/uL (1.8-7.7) H 08/09/22 04:55 Lymph # (Auto) 1.2 10^3/uL (0.8-4.8) 08/09/22 04:55 Gentry # (Auto) 0.6 10^3/uL (0.2-0.9) 08/09/22 04:55 Eos # (Auto) 0.0 10^3/uL (0.0-0.8) 08/09/22 04:55 Baso # (Auto) 0.0 10^3/uL (0.0-0.1) 08/09/22 04:55 Nucleated RBC % (auto) 0 % 08/09/22 04:55 Nucleated RBCs # 0.0 /100WBC 08/09/22 04:55 Sodium 136 mmol/L (136-145) 08/09/22 04:55 Potassium 4.2 mmol/L (3.5-5.1) 08/09/22 04:55 Chloride 103 mmol/L (98-107) 08/09/22 04:55 Carbon Dioxide 21 mmol/L (22-29) L 08/09/22 04:55 Anion Gap 16.2 (5-19) 08/09/22 04:55 BUN 9 mg/dL (6-20) 08/09/22 04:55 Creatinine 1.0 mg/dL (0.5-0.9) H 08/09/22 04:55 GFR Calculation 58.9 mL/min (90-130) L 08/09/22 04:55 Glucose 165 mg/dL (65-115) H 08/09/22 04:55 Calculated Osmolality 284 mOsm/kg (285-295) L 08/09/22 04:55 Lactic Acid 0.7 mmol/L (0.5-2.2) 08/07/22 12:29 Calcium 8.6 mg/dL (8.5-10.5) 08/09/22 04:55 Total Bilirubin 0.2 mg/dL (0.15-1.2) 08/09/22 04:55 AST 16 U/L (0-32) 08/09/22 04:55 ALT 52 U/L (0-33) H 08/09/22 04:55 Alkaline Phosphatase 192 U/L (35-105) H 08/09/22 04:55 Total Protein 5.9 g/dL (6.6-8.7) L 08/09/22 04:55 Albumin 2.9 g/dL (3.5-5.2) L 08/09/22 04:55 Globulin 3.0 g/dL (1.3-4.6) 08/09/22 04:55 Urine Color Yellow (Yellow) 08/07/22 12:15 Urine Appearance Hazy (CLEAR) A 08/07/22 12:15 Urine pH 5 (5-7) 08/07/22 12:15 Ur Specific [place] 1.025 (1.005-1.030) 08/07/22 12:15 Urine Protein Trace (Negative) 08/07/22 12:15 Urine Glucose (UA) Norm (Normal) 08/07/22 12:15 Urine Ketones 1+ (Negative) H 08/07/22 12:15 Urine Blood 2+ (Negative) H 08/07/22 12:15 Urine Nitrate Negative (Negative) 08/07/22 12:15 Urine Bilirubin 1+ (Negative) H 08/07/22 12:15 Urine Urobilinogen 1 mg/dL (Negative) H 08/07/22 12:15 Ur Leukocyte Esterase Trace (Negative) H 08/07/22 12:15 Urine RBC 5-10 /hpf (0-2) H 08/07/22 12:15 Urine WBC 5-10 /hpf (0-5) H 08/07/22 12:15 Ur Squamous Epith Cells 0-4 /hpf (0-5) H 08/07/22 12:15 Calcium Oxalate Crystal 0-4 /hpf H 08/07/22 12:15 Amorphous Sediment Not Reportable 08/07/22 12:15 Urine Bacteria None /hpf (NONE) 08/07/22 12:15 Urine Mucus 3+ /hpf 08/07/22 12:15 Procedures Performed 1. Cystoscopy, right retrograde ureteropyelogram 2. Diagnostic laparoscopy with drainage of intra-abdominal fluid. Approximately 1000 cc removed Vitals Last Vital Signs Temp 98.2 F 08/09/22 04:52 Pulse 80 08/09/22 04:52 Resp 17 08/09/22 04:52 BP 98/61 08/09/22 04:52 Pulse Ox 95 08/09/22 04:52 O2 Del Method 08/09/22 04:52 O2 Flow Rate 8 08/09/22 08:00 Discharge Plan Discharge Patient Disposition: Other Inst w Plan Readm Condition: Stable Prescriptions: Continued acetaminophen 325 mg capsule 325 mg PO Q4H PRN (Reason: fever or pain) Qty: 60 0RF estradiol 0.5 mg tablet 0.5 mg PO DAILY 30 Days Qty: 30 0RF Held ibuprofen 800 mg tablet 800 mg PO TID PRN (Reason: pain) Qty: 60 0RF Hold Instructions: Resume on 08/11/22. Discharge Orders: Discharge Order (Routine); Ordered 08/09/22 Ordered By: Devon Gongora Referrals: Nadege Lino APN [Primary Care Provider] - Patient Instructions: Opioid Safety Discharge Attestations Time Spent in Discharge Care*: greater than 30 min Quality Metrics Clinical Quality Measures [ No reported AMI, CVA or VTE this stay] Coding Level of Care Code Acute Code for Chg Fwd Diagnoses Right ureteral injury S37.10XA Urinary extravasation R39.0
[2022-08-09 11:54] VITALS: BP 111/77; PULSE 80; RESP 16; TEMP 36.8; O2SAT 94
== END 2022-08-09 11:27 | disposition other institution, planned readmission (95) ==
LOC: ER 12:08 → OBGYN 13:38
PROVIDERS: Urology; Admitting Provider Obstetrics & Gynecology; Emergency Provider Family Medicine; PCP Nurse Practitioner Family; Visit Provider Obstetrics & Gynecology
PROC: 0TJB8ZZ Inspection of Bladder, Via Natural or Artificial Opening Endoscopic (ICD-10-PCS; CPT 52000; principal; 2022-08-08 13:15)
PROC: (CPT 50605; 2022-08-08 13:15)
PROC: (CPT 74420; 2022-08-08 13:15)
PROC: (CPT 49320; 2022-08-08 13:15)
DX: S37.10XA Unspecified injury of ureter, initial encounter (principal); X58.XXXA Exposure to other specified factors, initial encounter; G89.18 Other acute postprocedural pain; R39.0 Extravasation of urine; F17.210 Nicotine dependence, cigarettes, uncomplicated; Z98.890 Other specified postprocedural states
CPT/HCPCS: 49320; 52005; 36415; 51702; 74177; 76000; 76705; 80053; 81001; 83605; 85018; 85025; 93005; 96374; 96376; 99285; G0378; J1100; J1170; J1940; J1956; J2270; J2405; J2704; J2710; J3010; J3490; J7030; J7121; Q9967; Q9968

== ENCOUNTER 2022-08-09 17:55 | Observation (INO) | payer OTHER, SELFPAY ==
--- NOTE | 2022-08-09 18:00 | P.HP_ITS ---
Providers/Chief Complaint Primary Care Provider: Nadege Lino APN Chief Complaint: post neph tube History of Present Illness Luci Ann is a 47 year old female recently discovered to have a ureteral injury on the right side following hysterectomy about 2 weeks ago. Attempts at antegrade stent placement were unsuccessful and extravasation was confirmed with retrograde pyelogram. She had significant mount of urine extravasated into the abdomen and also underwent a laparoscopic diagnostic procedure with aspiration of about 1000 cc of urine. Arrangements were made for a right percutaneous nephrostomy tube placement at [place]. That was performed today. They did not have any options for observation overnight and for that reason she was sent down there and readmitted back here today for observation Most recent labs showed a white count of 15.7 this morning. She felt much better after her abdomen had been evacuated from the urine. Presented back today with some nausea and pain. Placed on outpatient in a bed status with hopes of being able to discharge tomorrow Medications/Allergies Home Medications Medication Instructions Recorded Confirmed Last Taken Type acetaminophen 325 mg capsule 325 mg PO Q4H PRN fever or pain 07/27/22 08/09/22 08/06/22 Rx #60 caps estradiol 0.5 mg tablet 0.5 mg PO DAILY Surgical menopause 07/27/22 08/09/22 08/04/22 Rx 30 days #30 tabs ibuprofen 800 mg tablet 800 mg PO TID PRN pain #60 tabs 07/27/22 08/09/22 08/07/22 Rx ondansetron 4 mg disintegrating 4 mg PO Q8H 4 days #12 tabs 08/10/22 Unknown Rx tablet Allergies Allergy/AdvReac Type Severity Reaction Status Date / Time codeine Allergy ADR-Vomitin Verified 08/09/22 23:31 g oxycodone Allergy ADR-Halluci Verified 08/09/22 23:31 nating PFSH PFSH: Medical History No pertinent past medical history neghx: htn,dm,thyroid,dvt/pe PCP: Anny Lino Seasonal allergies Tobacco use Surgical History H/O shoulder surgery Hx of section 1999 2004-- twins gestation Hx of colonoscopy (~2002) Family History Father Heart disease Denies family history of Colon cancer Ovarian cancer Diabetes Hypercholesteremia Breast cancer Hypertension Uterine cancer Thyroid disease Stroke Social History Smoking and tobacco status: current every day smoker (5- cigarettes) Physical Exam Const: COMMON NORMALS: alert and well nourished GENERAL APPEARANCE: well kempt and well developed ORIENTATION/CONSCIOUSNESS: not confused HENMT: COMMON NORMALS: normocephalic HEAD & SCALP: normal to inspection and normocephalic Eye: COMMON NORMALS: conjunctivae normal and no scleral icterus CONJUNCTIVA: Yes conjunctivae normal Neck/C-Spine: GENERAL: Yes normal visual inspection Resp: COMMON NORMALS: normal respiratory effort EFFORT & INSPECTION: Yes able to speak in complete sentences, No labored and No Actively coughing GI: OTHER: She has some right upper quadrant and right CVA tenderness. No rebound. Incisions look healthy. : OTHER: Bladder is nondistended Extremity: OTHER: Normal Gait Neuro: COMMON NORMALS: no focal motor deficits SENSORIUM/ORIENTATION: Yes a lert Psych: COMMON NORMALS: mental status grossly normal APPEARANCE: Yes grossly normal and Yes well kempt ATTITUDE: Yes calm and Yes engaged Skin: COMMON NORMALS: no rashes or lesions noted and no jaundice GENERAL SKIN EXAM: no rashes or lesions noted Data 08/10/22 03:10 08/10/22 03:10 A&P Assessment and plan (1) Urinary extravasation: I expect there will be significantly diminished extravasation now that the nephrostomy tube is placed. (2) Right ureteral injury: Status post percutaneous nephrostomy tube placement. Tube is functioning well. Urine minimally bloody. (3) Postoperative pain: Focus on controlling symptoms. (4) Nausea: Hydration and antiemetics overnight. Plan Manage symptoms with antiemetics, pain control, serial labs. Anticipate discharge tomorrow Coding Level of Care Code Acute Code for Chg Fwd Diagnoses Urinary extravasation R39.0 Right ureteral injury S37.10XA Postoperative pain G89.18 Nausea R11.0
[2022-08-09 18:05] VITALS: BMI 22.6
[2022-08-09 18:10] VITALS: BP 116/68; PULSE 98; RESP 16; TEMP 37
[2022-08-09] MEDS: ondansetron 2 mg/ML SDV 2 mL 8 MG IVP (18:20)
[2022-08-09] MEDS: ketorolac 30 mg/mL INJ 15 MG IVP (18:23)
[2022-08-09 18:25] VITALS: RESP 17
[2022-08-09] MEDS: morphine 4 mg/mL SDV 1 mL IVP (18:25)
[2022-08-09] MEDS: D5-NS 0.45% + KCL 20 mEq 20 MEQ/1,000 ML BAG 75 MEQ IV (18:29)
[2022-08-09 18:39] VITALS: BP 104/60; PULSE 86; RESP 17; O2SAT 94
[2022-08-09] MEDS: levofloxacin-dextrose 5 % 500 MG/100 ML PREMIX 100 MG IV (19:00)
[2022-08-09 19:10] VITALS: BP 97/56; PULSE 95; RESP 17; O2SAT 96
[2022-08-09 20:00] VITALS: BP 105/68; PULSE 81; O2SAT 95
[2022-08-09 21:36] VITALS: BP 108/72; PULSE 80; O2SAT 99
[2022-08-09] MEDS: acetaminophen 325 mg Tablet 650 MG PO (22:27)
[2022-08-10] VITALS: BP 98/63; PULSE 58; RESP 16; TEMP 36.4; O2SAT 95
[2022-08-10] MEDS: ketorolac 30 mg/mL INJ 15 MG IVP (00:55)
[2022-08-10 03:21] LABS: Basophils # 0.1 10^3/uL (0.0-0.1); Basophils % 0.6 %; Eosinophils # 0.2 10^3/uL (0.0-0.8); Eosinophils % 1.9 %; Hematocrit 35.3 % (37.0-47.0); Hemoglobin 11.6 g/dL (11.5-15.3); Lymphocytes # 2.9 10^3/uL (0.8-4.8); Lymphocytes % 23.1 %; Mean Corpuscular HGB Conc 32.9 g/dL (30.0-36.0); Mean Corpuscular Hemoglobin 28.9 pg (28.0-34.0); Mean Corpuscular Volume 87.8 fl (81-99); Mean Platelet Volume 10.5 fL (7.4-10.4); Monocytes # 0.8 10^3/uL (0.2-0.9); Monocytes % 6.3 %; Neutrophils # 8.53 10^3/uL (1.8-7.7); Neutrophils % 67.8 %; Nucleated Red Blood Cells % 0 %; Platelet Count 507 10^3/cmm (130-400); Red Blood Count 4.02 10^6/uL (4.1-5.3); Red Cell Distribution Width 12.2 % (12.1-15.1); White Blood Count 12.6 10^3/uL (4.0-10.0)
[2022-08-10 03:53] LABS: Alanine Aminotransferase 44 U/L (0-33); Albumin Level 2.9 g/dL (3.5-5.2); Alkaline Phosphatase 175 U/L (35-105); Blood Urea Nitrogen 9 mg/dL (6-20); Calcium 8.9 mg/dL (8.5-10.5); Carbon Dioxide 26 mmol/L (22-29); Chloride 103 mmol/L (98-107); Globulin 3.4 g/dL (1.3-4.6); Glomerular Filtration Rate 76.2 mL/min (90-130); Glucose 100 mg/dL (65-115); Osmolality Calculated 287 mOsm/kg (285-295); Sodium 139 mmol/L (136-145); Total Bilirubin 0.3 mg/dL (0.15-1.2); Total Protein 6.3 g/dL (6.6-8.7)
[2022-08-10 04:00] VITALS: BP 108/68; PULSE 63; RESP 16; TEMP 36.8; O2SAT 97
[2022-08-10 04:15] LABS: Aspartate Amino Transferase 20 U/L (0-32)
[2022-08-10] MEDS: ondansetron 2 mg/ML SDV 2 mL 8 MG IVP (07:33)
--- NOTE | 2022-08-10 07:52 | PC.NURSE ---
Urine catheter amount from nephrostomy tube urine output amount void amount
[2022-08-10 10:00] VITALS: BP 94/69; PULSE 68; RESP 16; TEMP 36.4; O2SAT 99
--- NOTE | 2022-08-10 12:29 | PM.DCS ---
Discharge Providers Date of Admission: 08/09/22 17:55 Date of Discharge: August 10, 2022 Attending Provider at Admission: Devon Gongora MD Attending Provider at Discharge: Devon Gongora MD Primary Care Provider: Nadege Lino APN Diagnoses at Discharge Discharge Diagnosis (1) Urinary extravasation: Details from hospital stay: Was readmitted after nephrostomy tube placed in [place] for treatment of symptoms, outpatient in a bed status. Status: Acute (2) Right ureteral injury: Details from hospital stay: Nephrostomy tube placed in [place]. Status: Acute (3) Postoperative pain: Status: Resolved (4) Nausea: Status: Acute Reason for Visit Reason for Visit: post neph tube Hospital Course Hospital Course When she returned from [place] she was having a lot of pain and nausea. This was aggressively managed with parenteral medication and she improved dramatically. By the morning of hospital day #2 her pain had resolved. She had a mild ache on the right side but nothing that required medication. She was still having nausea but it was much improved and could manage orally. White count which been 15.7 yesterday was down to 12.6. Creatinine had dropped as well. Doing well Discharged on 08/10/2022. Physical Exam Narrative: She looks much better today. Const: COMMON NORMALS: no acute distress, alert and well nourished GENERAL APPEARANCE: well kempt and well developed ORIENTATION/CONSCIOUSNESS: not confused HENMT: COMMON NORMALS: normocephalic HEAD & SCALP: normal to inspection and normocephalic Neck/C-Spine: GENERAL: Yes normal visual inspection Resp: COMMON NORMALS: normal respiratory effort EFFORT & INSPECTION: Yes able to speak in complete sentences, No labored and No Actively coughing : OTHER: Bladder is nondistended Neuro: COMMON NORMALS: no focal motor deficits SENSORIUM/ORIENTATION: Yes alert Psych: COMMON NORMALS: mental status grossly normal APPEARANCE: Yes grossly normal and Yes well kempt ATTITUDE: Yes calm and Yes engaged Skin: COMMON NORMALS: no rashes or lesions noted and no jaundice GENERAL SKIN EXAM: no rashes or lesions noted Discharge Data Studies Completed and Pending Laboratory Results WBC 12.6 10^3/uL (4.0-10.0) H 08/10/22 03:10 RBC 4.02 10^6/uL (4.1-5.3) L 08/10/22 03:10 Hgb 11.6 g/dL (11.5-15.3) 08/10/22 03:10 Hct 35.3 % (37.0-47.0) L 08/10/22 03:10 MCV 87.8 fl (81-99) 08/10/22 03:10 MCH 28.9 pg (28.0-34.0) 08/10/22 03:10 MCHC 32.9 g/dL (30.0-36.0) 08/10/22 03:10 RDW 12.2 % (12.1-15.1) 08/10/22 03:10 Plt Count 507 10^3/cmm (130-400) H 08/10/22 03:10 MPV 10.5 fL (7.4-10.4) H 08/10/22 03:10 Neut % (Auto) 67.8 % 08/10/22 03:10 Lymph % (Auto) 23.1 % 08/10/22 03:10 [place] % (Auto) 6.3 % 08/10/22 03:10 Eos % (Auto) 1.9 % 08/10/22 03:10 Baso % (Auto) 0.6 % 08/10/22 03:10 Neut # (Auto) 8.53 10^3/uL (1.8-7.7) H 08/10/22 03:10 Lymph # (Auto) 2.9 10^3/uL (0.8-4.8) 08/10/22 03:10 [place] # (Auto) 0.8 10^3/uL (0.2-0.9) 08/10/22 03:10 Eos # (Auto) 0.2 10^3/uL (0.0-0.8) 08/10/22 03:10 Baso # (Auto) 0.1 10^3/uL (0.0-0.1) 08/10/22 03:10 Nucleated RBC % (auto) 0 % 08/10/22 03:10 Nucleated RBCs # 0.0 /100WBC 08/10/22 03:10 Sodium 139 mmol/L (136-145) 08/10/22 03:10 Potassium 4.0 mmol/L (3.5-5.1) 08/10/22 03:10 Chloride 103 mmol/L (98-107) 08/10/22 03:10 Carbon Dioxide 26 mmol/L (22-29) 08/10/22 03:10 Anion Gap 14.0 (5-19) 08/10/22 03:10 BUN 9 mg/dL (6-20) 08/10/22 03:10 Creatinine 0.8 mg/dL (0.5-0.9) 08/10/22 03:10 GFR Calculation 76.2 mL/min (90-130) L 08/10/22 03:10 Glucose 100 mg/dL (65-115) 08/10/22 03:10 Calculated Osmolality 287 mOsm/kg (285-295) 08/10/22 03:10 Calcium 8.9 mg/dL (8.5-10.5) 08/10/22 03:10 Total Bilirubin 0.3 mg/dL (0.15-1.2) 08/10/22 03:10 AST 20 U/L (0-32) 08/10/22 03:10 ALT 44 U/L (0-33) H 08/10/22 03:10 Alkaline Phosphatase 175 U/L (35-105) H 08/10/22 03:10 Total Protein 6.3 g/dL (6.6-8.7) L 08/10/22 03:10 Albumin 2.9 g/dL (3.5-5.2) L 08/10/22 03:10 Globulin 3.4 g/dL (1.3-4.6) 08/10/22 03:10 Vitals Last Vital Signs Temp 97.6 F 08/10/22 10:00 Pulse 68 08/10/22 10:00 Resp 16 08/10/22 10:00 BP 94/69 08/10/22 10:00 Pulse Ox 99 08/10/22 10:00 O2 Del Method 08/10/22 10:00 Discharge Plan Discharge Patient Disposition: Home Condition: Stable Prescriptions: New ondansetron 4 mg tablet,disintegrating 4 mg PO Q8H 4 Days Qty: 12 2RF Continued acetaminophen 325 mg capsule 325 mg PO Q4H PRN (Reason: fever or pain) Qty: 60 0RF ibuprofen 800 mg tablet 800 mg PO TID PRN (Reason: pain) Qty: 60 0RF Hold Instructions: Resume on 08/11/22. estradiol 0.5 mg tablet 0.5 mg PO DAILY 30 Days Qty: 30 0RF Discharge Orders: Discharge Order (Routine); Ordered 08/10/22 Ordered By: Devon Gongora Referrals: Devon Gongora MD [Physician] - (To be arranged) Discharge Diet: Advance as tolerated Discharge Activity: Increase activity as tolerated Patient Instructions: Opioid Safety Activity Restrictions/Additional Instructions: 1. To review our plans: We will be contacting [facility] first to see what options they have as far as attempt at definitive repair and timing for that. I expect that they want to see you in consult first before setting a surgical date. 2. In the short-term you really do not need to do much to the dressing covering the tube. 3. Somebody should be contacting you early next week at the latest regarding next steps. 4. My office number is [phone]. Please call if you have any questions. The hospital wire machine operator can reach me after hours if you have any concerns. Discharge Attestations Time Spent in Discharge Care*: less than 30 min Quality Metrics Clinical Quality Measures [ No reported AMI, CVA or VTE this stay] Coding Level of Care Code Acute Code for Chg Fwd Diagnoses Urinary extravasation R39.0 Right ureteral injury S37.10XA Postoperative pain G89.18 Nausea R11.0
[2022-08-10 13:00] VITALS: BP 108/70; PULSE 62; RESP 16; TEMP 36.6; O2SAT 99
[2022-08-10 13:20] VITALS: BP 108/70; PULSE 62; RESP 16; TEMP 36.6; O2SAT 99
== END 2022-08-10 13:30 | disposition home or self-care (01) ==
PROVIDERS: Admitting Provider Urology; PCP Nurse Practitioner Family; Visit Provider Urology
DX: R39.0 Extravasation of urine (principal); S37.10XA Unspecified injury of ureter, initial encounter; Y83.9 Surgical procedure, unspecified as the cause of abnormal reaction of the patient, or of later complication, without mention of misadventure at the time of the procedure; G89.18 Other acute postprocedural pain; R11.0 Nausea; F17.210 Nicotine dependence, cigarettes, uncomplicated; Z90.710 Acquired absence of both cervix and uterus
CPT/HCPCS: 36415; 80053; 85025; G0378; G0379; J1885; J1956; J2270; J2405

== ENCOUNTER → 2022-09-13 12:14 | Outpatient (BNVA) | payer OTHER, SELFPAY | PROVIDERS: PCP Nurse Practitioner Family; Visit Provider Urology | DX: Z43.6 Encounter for attention to other artificial openings of urinary tract (principal); S37.10XA Unspecified injury of ureter, initial encounter; X58.XXXA Exposure to other specified factors, initial encounter | CPT/HCPCS: 81003 ==

== ENCOUNTER → 2025-02-20 08:19 | Outpatient (BNVA) | payer BC, SELFPAY | PROVIDERS: PCP Nurse Practitioner Family; Visit Provider Nurse Practitioner Family | DX: R30.0 Dysuria (principal); N39.0 Urinary tract infection, site not specified | CPT/HCPCS: 81003; 87086 ==